=== PATIENT | female | born 1935 | race Caucasian/White ===

== ENCOUNTER 2018-03-08 14:25 | Observation (INO) | payer MEDICARE, OTHER ==
--- NOTE | 2018-03-08 15:21 | RAD ---
HISTORY: HTN, history of stroke, tachycardia COMPARISONS: September 09, 2012 VIEWS: 1: frontal portable view of the chest at 3:10 PM FINDINGS: LINES AND TUBES: None. CARDIOMEDIASTINAL SILHOUETTE: The cardiomediastinal silhouette is normal for portable technique. PLEURA: The costophrenic angles are sharp. No pleural abnormalities are noted. LUNG PARENCHYMA: The lungs are clear. ABDOMEN: The upper abdomen is clear. There is no subphrenic gas. BONES AND SOFT TISSUES: No bone or soft tissue abnormalities are noted. IMPRESSION: NO ACTIVE CARDIOPULMONARY DISEASE.
[2018-03-08 15:26] LABS: ABS Basophils 0 10^3/ul (0-0.2); ABS Eosinophils 0.2 10^3/ul (0-0.6); ABS Lymphocytes 1.8 10^3/ul (1.0-4.8); ABS Monocytes 0.5 10^3/ul (0-0.8); ABS Neutrophils 3.9 10^3/ul (1.5-7.7); ABS Nucleated RBC 0 10^3/ul; Eosinophil % 2.8 % (0-6); Hematocrit 40 % (35-47); Lymphocyte % 27.7 % (25-47); Mean Corpuscular HGB Conc 33 g/dl (31-36); Mean Corpuscular Hemoglobin 29 pg (27-31); Mean Corpuscular Volume 87 fL (80-97); Mean Platelet Volume 7.2 um3 (7.4-10.4); Nucleated Red Blood Cells % 0; Platelet Count 229 10^3/ul (150-450); Red Blood Count 4.52 10^6/ul (4.0-5.4); Red Cell Distribution Width 15 % (10.5-15); White Blood Count 6.4 10^3/ul (3.5-10.8)
[2018-03-08] MEDS ORDERED: Hydrochlorothiazide TAB* 25 MG PO ONE (15:29)
[2018-03-08] MEDS ORDERED: Lisinopril TAB* 10 MG PO ONE (15:29)
[2018-03-08 15:59] LABS: EGFR Non-African American 47.7 (>60)
[2018-03-08] MEDS ORDERED: Magnesium Oxide TAB* 400 MG PO ONE (16:04)
[2018-03-08] MEDS ORDERED: diPHENhydraMINE PO* 25 MG PO ONE ×2 (16:47→16:49)
[2018-03-08] MEDS ORDERED: hydrALAZINE IV* 20 MG/ML VIAL IV SLOW PU ONE (16:53)
[2018-03-08] MEDS ORDERED: hydrALAZINE IV* 20 MG/ML VIAL IV SLOW PU PRN ×2 (19:02→19:16)
[2018-03-08] MEDS ORDERED: Acetaminophen TAB* 325 MG PO PRN (19:15)
--- NOTE | 2018-03-08 19:42 | ED ---
Matt Ortiz Tiffany, scribed for Yung Tran MD on 03/08/18 at 1518 . Hypertension - HPI Summary HPI Summary: 82 year old F presenting to [facility] complains of episodes of hypertension since this morning. Symptoms aggravated by nothing. Symptoms alleviated by nothing. Patient reports headache, weakness. Denies chest pain, shortness of breath, fever chills, vomiting, diarrhea, bilateral lower extremity edema. Hx diabetes. Hx strokes. - History of Current Complaint Chief Complaint: EDHypertension Stated Complaint: HIGH BP, HIGH HR Time Seen by Provider: 03/08/18 14:44 Hx Obtained From: Patient Onset/Duration: Started Hours Ago - this morning Aggravating Factor(s): Nothing Alleviating Factor(s): Nothing Associated Signs & Symptoms: Negative - chest pain, shortness of breath, fever chills, vomiting, diarrhea, bilateral lower extremity edema, Other: - headache, weakness - Allergies/Home Medications Allergies/Adverse Reactions: Allergies Allergy/AdvReac Type Severity Reaction Status Date / Time alcohol Allergy Hives/Diff. Verified 03/08/18 14:40 Breathing/I tching clonidine Allergy See Comment Verified 03/08/18 14:40 thiopental [From Pentothal] AdvReac Severe Vomiting Verified 03/08/18 19:13 Home Medications: Home Medications Cholecalciferol TAB* [Vitamin D TAB*] 1,000 unit PO DAILY 03/08/18 [History Confirmed 03/08/18] Cyanocobalamin TAB* [Vitamin B12 TAB*] 1,000 mcg PO EVERY OTHER DAY 03/08/18 [ History Confirmed 03/08/18] [id number] Ethyl Esters (NF) [Lovaza (NF)] 1 cap PO DAILY 03/08/18 [History Confirmed 03/08/18] PMH/Surg Hx/FS Hx/Imm Hx Previously Healthy: No Endocrine/Hematology History: Reports: Hx Diabetes - TYPE 2 Denies: Hx Anticoagulant Therapy, Hx Systemic Lupus Erythematosus Cardiovascular History: Reports: Hx Hypertension - CONTROL WITH MEDS, Other Cardiovascular Problems/Disorders - CHOLESTEROL CONTROL WITH MEDS Denies: Hx Pacemaker/ICD GI History: Reports: Hx Ulcer - CURRENTLY - NO MEDS History: Reports: Hx Renal Disease, Other Problems/Disorders - stress incontinence, wears depends Denies: Hx Dialysis Musculoskeletal History: Reports: Hx Arthritis - RIGHT HANDS, BACK, BILATERAL HIPS, Other Musculoskeletal History - LEFT HIP SURGERY Denies: Hx Rheumatoid Arthritis Sensory History: Reports: Hx Cataracts - BILATERAL, Hx Contacts or Glasses - GLASSES Denies: Hx Hearing Aid Opthamlomology History: Reports: Hx Cataracts - BILATERAL, Hx Contacts or Glasses - GLASSES Neurological History: Reports: Hx CVA, Other Neuro Impairments/Disorders - BALANCE ISSUES R/T DIABETES - Cancer History Cancer Type, Location and Year: right breast. basal cell nose eYebrow Hx Chemotherapy: No Hx Radiation Therapy: No - Surgical History Surgery Procedure, Year, and Place: CAROTID ENDARTERECTOMY. HYSTERECTOMY. TONSILLECTOMY. SKIN LESION ON CHEST REMOVED. 2007 RIGHT BREAST NEEDLE LOCALIZATION WITH [place]CER [place] [facility] [place] [facility] [place]. [place] [facility] [place] HIP REPLACEMENT Hx Anesthesia Reactions: Yes - SODIUM PENTOTHAL - SEVERE VOMITING Infectious Disease History: No Infectious Disease History: Denies: Traveled Outside the [place] in Last 30 Days - Family History Known Family History: Positive: Other - Reviewed and non-contributory - Social History Alcohol Use: None Hx Substance Use: No Substance Use Type: Reports: None Hx Tobacco Use: No Smoking Status (MU): Never Smoked Tobacco Review of Systems Negative: Fever, Chills Positive: Other - episodes of hypertension. Negative: Chest Pain Negative: Shortness Of Breath Negative: Vomiting, Diarrhea Negative: Edema - bilateral lower extremity Positive: Headache, Weakness All Other Systems Reviewed And Are Negative: Yes Physical Exam - Summary Physical Exam Summary: VITAL SIGNS: Reviewed. GENERAL: Patient is a well-developed and nourished female who is lying comfortable in the stretcher. Patient is not in any acute respiratory distress. HEAD AND FACE: No signs of trauma. No ecchymosis, hematomas or skull depressions. No sinus tenderness. EYES: PERRLA, EOMI x 2, No injected conjunctiva, no nystagmus. EARS: Hearing grossly intact. Ear canals and tympanic membranes are within normal limits. MOUTH: Oropharynx within normal limits. NECK: Supple, trachea is midline, no adenopathy, no JVD, no carotid bruit, no c- spine tenderness, neck with full ROM. CHEST: Symmetric, no tenderness at palpation LUNGS: Clear to auscultation bilaterally. No wheezing or crackles. CVS: Regular rate and rhythm, S1 and S2 present, no murmurs or gallops appreciated. ABDOMEN: Soft, non-tender. No signs of distention. No rebound no guarding, and no masses palpated. Bowel sounds are normal. EXTREMITIES: FROM in all major joints, no edema, no cyanosis or clubbing. NEURO: Alert and oriented x 3. No acute neurological deficits. Speech is normal and follows commands. SKIN: Dry and warm Triage Information Reviewed: Yes Vital Signs On Initial Exam: Initial Vitals Temp Pulse Resp BP Pulse Ox 97 F 65 14 125/80 98 03/08/18 14:40 03/08/18 14:40 03/08/18 14:40 03/08/18 14:40 03/08/18 14:40 Vital Signs Reviewed: Yes Diagnostics - Vital Signs Vital Signs Temp Pulse Resp BP Pulse Ox 03/08/18 14:40 97 F 65 14 125/80 98 - Laboratory Lab Results: Lab Results 03/08/18 03/08/18 Range/Units 15:17 15:17 WBC 6.4 (3.5-10.8) 10^3/ul RBC 4.52 (4.0-5.4) 10^6/ul Hgb 13.0 (12.0-16.0) g/dl Hct 40 (35-47) % MCV 87 (80-97) fL MCH 29 (27-31) pg MCHC 33 (31-36) g/dl RDW 15 (10.5-15) % Plt Count 229 (150-450) 10^3/ul MPV 7.2 L (7.4-10.4) um3 Neut % (Auto) 61.4 (38-83) % Lymph % (Auto) 27.7 (25-47) % Calvert % (Auto) 7.6 H (0-7) % Eos % (Auto) 2.8 (0-6) % Baso % (Auto) 0.5 (0-2) % Absolute Neuts (auto) 3.9 (1.5-7.7) 10^3/ul Absolute Lymphs (auto) 1.8 (1.0-4.8) 10^3/ul Absolute Monos (auto) 0.5 (0-0.8) 10^3/ul Absolute Eos (auto) 0.2 (0-0.6) 10^3/ul Absolute Basos (auto) 0 (0-0.2) 10^3/ul Absolute Nucleated RBC 0 10^3/ul Nucleated RBC % 0 Sodium 139 (139-145) mmol/L Potassium 4.5 (3.5-5.0) mmol/L Chloride 106 (101-111) mmol/L Carbon Dioxide 25 (22-32) mmol/L Anion Gap 8 (2-11) mmol/L BUN 23 (6-24) mg/dL Creatinine 1.10 H (0.51-0.95) mg/dL Est GFR ( Amer) 61.3 (>60) Est GFR (Non-Af Amer) 47.7 (>60) BUN/Creatinine Ratio 20.9 H (8-20) Glucose 157 H (70-100) mg/dL Calcium 9.7 (8.6-10.3) mg/dL Magnesium 1.6 L (1.9-2.7) mg/dL Total Bilirubin 0.40 (0.2-1.0) mg/dL AST 18 (13-39) U/L ALT 21 (7-52) U/L Alkaline Phosphatase 68 (34-104) U/L Total Creatine Kinase 161 (10-223) U/L CK-MB (CK-2) 8.9 H (0.6-6.3) ng/mL Troponin I 0.01 (<0.04) ng/mL C-Reactive Protein < 1.00 (< 5.00) mg/L Total Protein 6.1 L (6.4-8.9) g/dL Albumin 3.8 (3.2-5.2) g/dL Globulin 2.3 (2-4) g/dL Albumin/Globulin Ratio 1.7 (1-3) TSH 3.11 (0.34-5.60) mcIU/mL Result Diagrams: 03/08/18 15:17 03/08/18 15:17 Lab Statement: Any lab studies that have been ordered have been reviewed, and results considered in the medical decision making process. - Radiology CXR Radiology Interpretation Completed By: Radiologist - NO ACTIVE CARDIOPULMONARY DISEASE. ED physician has reviewed this report. - EKG 14:54 Cardiac Rate: NL - 66 BPM EKG Rhythm: Sinus Rhythm EKG Interpretation: No ST elevations Hypertension Course/Dx - Course Assessment/Plan: This patient is an 82-year-old female who presents to the emergency department with a chief complaint of uncontrolled blood pressure. She also reports that she is having dizziness and weakness secondary to increased blood pressure. She has past medical history of hypertension and she reports that she takes her medications daily. Physical sounds without any significant abnormality except for creatinine of 1.1 and glucose 157. CK-MB is 8.9 troponin 0.01. Chest x-ray impression: Cardiopulmonary abnormality. EKG shows normal stimulations. And a because the patient was given lisinopril and hydrochlorothiazide since the patients blood pressure is only 181/92. We rechecked the blood pressure and 208/94 , thus the patient was given hydralazine since HR is only upper 50s. The patient continues to have increased blood pressure and dizziness. I discussed the case with Dr. Sebastian who is apparently a physician and he requested for the patient to be admitted to the hospitalist services. Therefore I discussed the case with Dr. nice and he accepted the patient for admission. The patient is hemodynamically stable alert and oriented 3 - Diagnoses Differential Diagnosis/HQI PQRI: Hypertension, Hypertensive Crisis, Hypertensive Urgency Provider Diagnoses: Hypertensive urgency Discharge - Sign-Out/Discharge Documenting (check all that apply): Discharge/Admit/Transfer - Discharge Plan Condition: Fair Disposition: ADMITTED TO [facility] Referrals: Arie Sebastian MD [Primary Care Provider] - - Billing Disposition and Condition Condition: FAIR Disposition: Admitted to [facility] The documentation as recorded by the Matt mcneal Tiffany accurately reflects the service I personally performed and the decisions made by , Yung Tran MD.
[2018-03-08] MEDS: Metoprolol Tartrate TAB* 25 MG PO SCH (20:35)
[2018-03-08] MEDS: Insulin GLARGINE(*) 1 UNITS UNIT SUBCUT SCH (20:36)
[2018-03-08] MEDS: Heparin VIAL(*) 5000 UNITS/ML VIAL (FIVE THOUSAND) SUBCUT SCH (20:37)
[2018-03-08] MEDS ORDERED: Aspirin EC TAB* 81 MG TAB.EC PO SCH (21:00)
[2018-03-09] MEDS: Nystatin TOP POWDER* 15 GM BTL TOPICAL SCH ×2 (00:18→09:37)
--- NOTE | 2018-03-09 04:09 | HP ---
CC: Dr. Arie Sebastian * HISTORY AND PHYSICAL: DATE OF ADMISSION: 03/08/18 PRIMARY CARE PROVIDER: Dr. Arie Sebastian. ATTENDING PHYSICIAN: Dr. Isak Weeks *(dictated by Maxine Carpenter NP). CHIEF COMPLAINT: Headache, generalized weakness and hypertension. HISTORY OF PRESENT ILLNESS: Ms. Lackey is an 82-year-old female with past medical history significant for diabetes mellitus, hypertension, hyperlipidemia , GERD, arthritis, right breast cancer, uterine cancer, basal cell cancer and stress incontinence, who states that she has been in her usual state of health. She denies any fevers, chills, chest pain, shortness of breath. She occasionally has a nonproductive cough. She denies nausea, vomiting, or abdominal pain. She reports diarrhea at baseline and believes this is secondary to her metformin. She reports a right temporal headache for the last week and today. She also reports dizziness, feeling as though the room was spinning for the last week. She often notices this at night when she gets up. She also reports left eye twitching for the last 4 to 5 days. She has urinary frequency at baseline. She denies other urinary symptoms such as urgency or dysuria. She denies any changes in her vision. She denies any one-sided weakness, facial drooping, difficulty with speech. She reports drinking 2 cups of coffee in the morning and occasionally a cup of tea in the evening. She reports that she checked her blood pressure at home today and it was 235/88 with a pulse of 75, so she went to the drug store and rechecked it and her systolic blood pressure was 210. She called Dr. Sebastian's office and eventually decided to come to the emergency room for further evaluation of her symptoms. While in the emergency room, the patient was noted to be hypertensive with systolic blood pressures up into the 200s. She received lisinopril, hydroxyzine , hydrochlorothiazide. While in the emergency room, she had labs that were unremarkable with the exception of hypomagnesium with a magnesium of 1.6, she received oral supplement. She has an elevated creatinine, which appears to be at her baseline, chronic kidney disease stage 3. While in the emergency room, her blood pressure was down to 183/66. Due to her hypertension and complaints of dizziness, the hospitalists were asked to evaluate her for admission. PAST MEDICAL HISTORY: 1. Diabetes mellitus. 2. Hypertension. 3. Hyperlipidemia. 4. GERD. 5. Uterine carcinoma. 6. Stress urinary incontinence. 7. Arthritis. 8. Right breast cancer. 9. Basal cell carcinoma. PAST SURGICAL HISTORY: 1. Status post right breast lumpectomy and sentinel node biopsy. 2. Status post left hip ORIF. 3. Status post release of right trigger thumb. 4. Status post right carpal tunnel release. 5. Status post excision of skin lesion to the chest. 6. Status post tonsillectomy. 7. Status post bilateral cataract extractions. 8. Status post excision of basal cell carcinoma to the nose and eyebrow. 9. Status post left carotid endarterectomy. 10. Status post hysterectomy. HOME MEDICATIONS: Include: 1. Aspirin 81 mg oral daily at bedtime. 2. Lantus 22 units subcutaneous twice daily. 3. Metformin 1000 units twice daily. 4. Ranitidine 150 mg oral twice daily. 5. Lovaza 1 oral daily. 6. Metoprolol 25 mg oral twice daily. 7. Lisinopril 40 mg oral daily. 8. Humalog 14 units subcutaneous with meals. 9. Vitamin B12 1000 mcg oral every other day. 10. Vitamin D 1000 units oral daily. 11. Atorvastatin 40 mg oral daily. ALLERGIES: ALCOHOL, CLONIDINE, SODIUM PENTOTHAL. FAMILY HISTORY: The patient's father and son have a history of coronary artery disease. She has a sister with a history of diabetes mellitus and a maternal grandfather with a history of rectal carcinoma. SOCIAL HISTORY: The patient denies tobacco, alcohol or recreational drug use. Her daughter, Peyton Flannery, will be her surrogate decision maker in the event she is unable to make decisions for herself. REVIEW OF SYSTEMS: I performed an 11-point review of systems. All the pertinent positives and negatives are mentioned in the history of present illness. Remaining review of systems is negative. PHYSICAL EXAMINATION GENERAL APPEARANCE: The patient is alert, pleasant, appears to be in no acute distress. VITAL SIGNS: Temperature 97, heart rate 66, respiratory rate 21, O2 sat 95% on room air, blood pressure 206/77. HEENT: Normocephalic, atraumatic. Pupils are equal and reactive to light. Extraocular movements are intact. RESPIRATORY: There is no accessory muscle use. The lungs are clear to auscultation bilateral. CARDIOVASCULAR: Regular rate and rhythm. S1, S2 present. There are no murmurs , rubs or gallops heard. ABDOMEN: Soft, nontender, nondistended. There are bowel sounds present x4. EXTREMITIES: There is no lower extremity edema. DP and PT pulses are 2+ and symmetric. MUSCULOSKELETAL: There is no clubbing or cyanosis noted. The patient exhibits good strength in all extremities. NEUROLOGICAL: The patient is alert and oriented x4. Cranial nerves II through XII are grossly intact. She has no nystagmus. Her smile is symmetric. Her tongue is midline. Her handgrips are equal. She has no pronator drift. She is able to perform [id number] bilateral without difficulty. PSYCHOLOGIC: The patient is calm and cooperative. SKIN: There are no rashes or abnormalities seen. DIAGNOSTIC STUDIES/LABORATORY DATA: Sodium 139, potassium 4.5, chloride 106, CO2 of 25, BUN 23, creatinine 1.10, glucose 157, magnesium 1.6. White blood cell count 6.4, hemoglobin 13.0, hematocrit 40, platelet count 229. EKG shows sinus rhythm, rate of 66. There are no acute signs of ischemia and it is similar when compared to previous from 11/10/11. Chest x-ray from today. Radiologist's impression: No active cardiopulmonary disease. IMPRESSION: Mrs. Lackey is an 82-year-old female with past medical history significant for diabetes mellitus, hypertension, hyperlipidemia, gastroesophageal reflux disease, uterine carcinoma, stress urinary incontinence , arthritis, right breast cancer and basal cell cancer, who presents to the emergency room with complaints of hypertension, headache and generalized weakness. She will be admitted as an observation for hypertension. ASSESSMENT/PLAN: 1. Hypertension. The patient's blood pressures are improving in the emergency room after receiving additional medications. She was down into the 180's systolically after receiving hydrochlorothiazide, hydralazine and lisinopril in the emergency room. We will give her as needed hydralazine for systolic blood pressures greater than 185 or diastolic blood pressure greater than 100. We will continue her home metoprolol and lisinopril. She may need to further have her medications adjusted if she continues to be hypertensive overnight. I suspect the patient's hypertension is causing her dizziness and headache. 2. Headache. I suspect this is secondary to the patient's hypertension. She will be provided supportive care and pain medication. 3. Diabetes mellitus. The patient will have glucose checked a.c. and h.s. She will be continued on her home metformin, Lantus and Humalog with meals. 4. Chronic kidney disease, stage 3. The patient's creatinine is at baseline. 5. Gastroesophageal reflux disease. Continue home ranitidine or hospital substitute. 6. Fluids, electrolytes and nutrition. Heart- healthy, consistent carbohydrate diet. 7. Code status. Full code. 8. DVT prophylaxis. The patient is at high risk and will be on subcu heparin. 9. Disposition. Observation. TIME SPENT: Time for this admission was approximately 60 minutes, greater than half of that was spent with the patient discussing medications, past medical history, the events leading up to her arrival today and performing her physical examination. The case has been reviewed with the attending, Dr. Weeks, who agrees with the plan of care. Reviewed by ESMER JONES 03/11/18 0922 [id number]/[facility] #: [id number] REHANA
[2018-03-09] MEDS: Heparin VIAL(*) 5000 UNITS/ML VIAL (FIVE THOUSAND) SUBCUT SCH (06:06)
[2018-03-09 06:52] LABS: EGFR Non-African American 41.9 (>60)
[2018-03-09] MEDS ORDERED: metFORMIN* 500 MG TAB PO SCH (08:00)
[2018-03-09] MEDS ORDERED: Hydrochlorothiazide TAB* 25 MG PO SCH (09:00)
[2018-03-09] MEDS ORDERED: Famotidine TAB* 20 MG PO SCH (09:00)
[2018-03-09] MEDS ORDERED: Cholecalciferol TAB* 1000 UNITS PO SCH (09:00)
[2018-03-09] MEDS ORDERED: Lisinopril TAB* 10 MG PO SCH (09:00)
[2018-03-09] MEDS ORDERED: amLODIPine TAB* 5 MG PO SCH (09:00)
[2018-03-09] MEDS ORDERED: Atorvastatin* 40 MG TAB PO SCH (09:00)
[2018-03-09] MEDS: Metoprolol Tartrate TAB* 25 MG PO SCH (09:33)
[2018-03-09] MEDS: Insulin GLARGINE(*) 1 UNITS UNIT SUBCUT SCH (09:36)
[2018-03-09] MEDS: Insulin LISPRO* 1 UNITS UNIT SUBCUT SCH ×2 (09:36→13:00)
--- NOTE | 2018-03-09 10:45 | PN ---
Subjective - Subjective Reason for Note: Discharge Note History: Discharge summary I have reviewed Renetta Lackey's presentation with the patient and from Dr. Sim Fonseca's admitting history and physical. She has had reasonable control of her hypertension as an out patient/primary care patient at my office. She was taking lisinopril and metoprolol. Her brother at 92 years on and she is going to have to give an oration at his . She is not aware of being stressed. She has had a headache for 1 week - this is unusual for her. She has had some vertigo - but this is likely BPPV. Her BP was high at the pharmacy on 2 days and she went to the ED. It has come down overnight. She has no nausea, vomiting, headache, chest pain, dyspnea, palpitations. She feels well and would like to go home Active Problems: Active Problems Accelerated essential hypertension (Acute) I10 Bereavement (Acute) Z63.4 HYPERTENSION (Acute) Abdominal aortic aneurysm without rupture (Chronic) I71.4 Arthritis (Chronic) M19.90 BREAST CANCER (Chronic) CVA (Chronic) Diabetes mellitus (Chronic) E11.9 Hypercholesterolemia (Chronic) E78.0 Thyroid nodule (Chronic) E04.1 Current Medications: Current Medications Acetaminophen (Tylenol Tab*) 650 mg PO Q4H PRN PRN Reason: FEVER/PAIN Aspirin (Aspirin Ec Tab*) 81 mg PO BEDTIME [facility] Last Admin: 03/08/18 20:36 Dose: 81 mg Atorvastatin Calcium (Lipitor*) 40 mg PO DAILY KENDRICK Last Admin: 03/09/18 09:32 Dose: 40 mg Cholecalciferol (Vitamin D Tab*) 1,000 units PO DAILY KENDRICK Last Admin: 03/09/18 09:33 Dose: 1,000 units Cyanocobalamin (Vitamin B12 Tab*) 1,000 mcg PO EVERY OTHER DAY [facility] Famotidine (Pepcid Tab*) 20 mg PO DAILY KENDRICK PRN Reason: Protocol Last Admin: 03/09/18 09:32 Dose: 20 mg Heparin Sodium (Porcine) (Heparin Vial(*)) 5,000 units SUBCUT Q8HR KENDRICK Last Admin: 03/09/18 06:06 Dose: 5,000 units Hydralazine HCl (Apresoline Iv*) 10 mg IV SLOW PU Q6H PRN PRN Reason: BLOOD PRESSURE Insulin Glargine (Lantus(*)) 22 units SUBCUT BID [facility] Last Admin: 03/09/18 09:36 Dose: 22 unit Insulin Human Lispro (Humalog*) 14 units SUBCUT AC [facility] Last Admin: 03/09/18 09:36 Dose: 14 units Lisinopril (Prinivil Tab*) 40 mg PO DAILY [facility] Last Admin: 03/09/18 09:33 Dose: 40 mg Metformin HCl (Glucophage*) 1,000 mg PO BID WITH MEALS [facility] Last Admin: 03/09/18 09:33 Dose: 1,000 mg Metoprolol Tartrate (Lopressor Tab*) 25 mg PO BID [facility] Last Admin: 03/09/18 09:33 Dose: 25 mg Nystatin (Nystatin Top Powder*) 1 applic TOPICAL BID [facility] Last Admin: 03/09/18 09:37 Dose: 1 applic - Review of Systems Constitutional Symptoms: Yes: Weakness, No: Fatigue Eyes: Negative: Change in Vision, Double Vision Pulmonary: Negative: Cough, Sputum, Hemoptysis Cardiology: Negative: Chest Pain, Shortness of Breath, Palpitations, Swelling of Ankles Gastroenterology: Negative: Abdominal Pain, Nausea, Vomiting, Heartburn, Change in Bowel Habits Genital - Urinary: Positive: Normal Genitourinay - Female: Abnormal: Vaginal Discharge - she has vaginal itching Neurology: Positive: Headache, Dizziness Negative: Change in Vision, Diplopia, Change in Speech, Change in Sphincter Function, Numbness\Paresthesiae Home Medications: Home Medications Medication Instructions Recorded Confirmed Type Aspirin EC TAB* [Ecotrin EC Low 81 mg PO BEDTIME 10/21/12 03/08/18 History Dose 81 MG*] Atorvastatin* [Lipitor*] 40 mg PO DAILY 10/21/12 03/08/18 History Insulin Human LISPRO(*) 14 units SUBCUT AC MDD 60u 10/21/12 03/08/18 History [Humalog(*)] Lisinopril TAB* [Prinivil TAB 10 40 mg PO DAILY 10/21/12 03/08/18 History MG*] Metoprolol Tartrate TAB* 25 mg PO BID 10/21/12 03/08/18 History [Lopressor TAB*] Ranitidine TAB (NF) [Zantac TAB 150 mg PO BID 10/21/12 03/08/18 History (NF)] metFORMIN* [Glucophage 500 MG TAB 1,000 mg PO BID WITH MEALS 10/21/12 03/08/18 History *] zzInsulin GLARGINE(*) [Lantus(*)] 22 units SUBCUT BID 10/21/12 03/08/18 History Cholecalciferol TAB* [Vitamin D 1,000 unit PO DAILY 03/08/18 03/08/18 History TAB*] Cyanocobalamin TAB* [Vitamin B12 1,000 mcg PO EVERY OTHER DAY 03/08/18 03/08/18 History TAB*] Mljuu-4-Xkor Ethyl Esters (NF) 1 cap PO DAILY 03/08/18 03/08/18 History [Lovaza (NF)] Allergies: Allergies Allergy/AdvReac Type Severity Reaction Status Date / Time alcohol Allergy Hives/Diff. Verified 03/08/18 14:40 Breathing/I tching clonidine Allergy See Comment Verified 03/08/18 14:40 thiopental [From Pentothal] AdvReac Severe Vomiting Verified 03/08/18 19:13 Objective - Vital Signs Vital Signs: Vital Signs 03/08/18 03/08/18 03/08/18 18:53 19:00 19:03 Temperature Pulse Rate 82 78 80 Respiratory 16 17 31 Rate Blood Pressure 196/83 190/88 (mmHg) O2 Sat by Pulse 96 97 97 Oximetry 03/08/18 03/08/18 03/08/18 19:13 19:33 19:37 Temperature Pulse Rate 79 84 80 Respiratory 23 23 17 Rate Blood Pressure 195/90 202/72 189/69 (mmHg) O2 Sat by Pulse 95 96 96 Oximetry 03/08/18 03/08/18 03/08/18 19:46 19:56 20:00 Temperature 98.3 F 98.1 F Pulse Rate 87 88 Respiratory 20 20 20 Rate Blood Pressure 199/105 188/56 (mmHg) O2 Sat by Pulse 97 98 Oximetry 03/08/18 03/08/18 03/08/18 21:53 22:06 22:07 Temperature Pulse Rate 71 71 74 Respiratory Rate Blood Pressure 132/43 132/43 150/48 (mmHg) O2 Sat by Pulse 94 Oximetry 03/08/18 03/09/18 03/09/18 22:08 00:25 04:07 Temperature 98.0 F 97.6 F Pulse Rate 78 73 76 Respiratory 24 20 Rate Blood Pressure 154/60 153/61 180/68 (mmHg) O2 Sat by Pulse 96 98 Oximetry 03/09/18 03/09/18 04:19 07:25 Temperature 97.9 F 97.5 F Pulse Rate 75 71 Respiratory 20 16 Rate Blood Pressure 150/62 177/63 (mmHg) O2 Sat by Pulse 97 97 Oximetry - Intake and Output Intake and Output: Intake & Output 03/06/18 03/07/18 03/08/18 03/09/18 11:59 11:59 11:59 11:59 Intake Total 485 Output Total 0 Balance 485 Weight 206 lb 11.2 oz Intake: Oral 485 Output: Urine 0 Other: Estimated Void Medium # Bowel Movements 0 # Voids 1 ADLs: Meal Record Start: 03/08/18 19: 56 Freq: DAILY@0900,1400,1800 Status: Active Protocol: Created 03/08/18 19:56 System (Rec: 03/08/18 19:56 System [email or web address]) Document 03/09/18 09:00 [id number] (Rec: 03/09/18 10:19 [id number] [id number]) Intake and Output Start: 03/08/18 19: 56 Freq: DAILY@0600,1400,2200 Status: Active Protocol: Created 03/08/18 19:56 System (Rec: 03/08/18 19:56 System [email or web address]) Document 03/08/18 22:00 [id number] (Rec: 03/08/18 22:09 [id number] [email or web address]) Document 03/09/18 06:00 [id number] (Rec: 03/09/18 07:32 [id number] [email or web address]) - Physical Exam General Physical Exam Comment: Warm and well perfused, alert and oriented. She is in no distress. Fundoscopy - no papilledema or hemorrhages. General: No Cyanosis, No Anemia, No Jaundice, No Clubbing Eye Exam: bilateral: PERRLA, Normal Fundi Skin: Normal: Rash Endocrine: Yes Central Obesity, No Hirsuitism, No Virilism, No Acromegaly, No Vitiligo, No Flushing, No Acanthosis nigricans, No Violaceious striae, No [place] Syndrome, No Buccal pigmenatation, No Sosa Crease Pigmentation Lungs and Chest: Yes: Chest Expansion Full, Chest Expansion Symetrica, Percussion Note Resonant, Vessicular Breath Sounds. No: Crackles, Wheezes Heart Rate and Rhythm: Regular JVP: Not Elevated Additional Cardiovascular: Yes: Normal Heart Sounds. No: Heart Murmur, Pedal Edema Abdominal Exam: Yes: Soft, Bowel Sounds Present. No: Distention, Abdominal Tenderness - Extremities Cranial Nerves II-XII Intact: Yes Limbs: Normal Power, Normal Tone, Normal Coordination - Neuro Orientation: A/O x3 Speech: Normal Results - Results Lab Results: Laboratory Results - last 24 hr 03/08/18 03/09/18 03/09/18 20:23 06:19 08:16 Sodium 139 Potassium 4.5 Chloride 105 Carbon Dioxide 26 Anion Gap 8 BUN 26 H Creatinine 1.23 H Est GFR ( Amer) 53.9 Est GFR (Non-Af Amer) 41.9 BUN/Creatinine Ratio 21.1 H Glucose 217 H POC Glucose (mg/dL) 150 H 203 H Calcium 9.5 Magnesium 1.7 L Radiology Results: Patient Name: RENETTA LACKEY Medical Record#: [id number] Ordering Physician: Yung Tran MD Acct.#: [id number] : 1935 Age: 82 Sex: F Location: EMERGENCY DEPARTMENT Exam Date: 03/08/181446 ADM Status: REG ER Order Information: CHEST AP PORTABLE Accession Number: [id number] CPT: 78586 HISTORY: HTN, history of stroke, tachycardia COMPARISONS: September 09, 2012 VIEWS: 1: frontal portable view of the chest at 3:10 PM FINDINGS: LINES AND TUBES: None. CARDIOMEDIASTINAL SILHOUETTE: The cardiomediastinal silhouette is normal for portable technique. PLEURA: The costophrenic angles are sharp. No pleural abnormalities are noted. LUNG PARENCHYMA: The lungs are clear. ABDOMEN: The upper abdomen is clear. There is no subphrenic gas. BONES AND SOFT TISSUES: No bone or soft tissue abnormalities are noted. IMPRESSION: NO ACTIVE CARDIOPULMONARY DISEASE. <Electronically signed by Scar Riley MD in OV> 03/08/181517 Dictated By: Scar Riley MD Dictated Date/Time: 03/08/181517 Transcribed Date/Time: 03/08/181516 Copy to: CC:Arie Sebastian MD; Yung Tran MD Imaging - [facility] Imaging - [facility] Imaging - [facility] [address] [place], [place] [id number] [place] [id number] [place] [id number] ph ([phone]) ph ([phone]) ph ([phone]) EKG Report: 66 sinus rhythm MO 151 QRDS 90 QT^c 413 [place] -16 normal sinus rhythm Assessment - Problem List Assessment: Patient Problems Accelerated essential hypertension (Acute) Bereavement (Acute) HYPERTENSION (Acute) Abdominal aortic aneurysm without rupture (Chronic) Arthritis (Chronic) BREAST CANCER (Chronic) CVA (Chronic) Diabetes mellitus (Chronic) Hypercholesterolemia (Chronic) Thyroid nodule (Chronic) Plan: Accelerated essential hypertension (Acute) HYPERTENSION (Acute) She has a history of controlled essential hypertension. Her brother on . She has had a headache for 1 week (atypical) and her BP was high x 2 at a pharmacy. Her BP has come down in the hospital - it remains high, but not critical. She doesn't have any neurological signs, nor does she have any evidence of papilledema. I will treat this as on outpatient and start her on amlodipine 5 mg and hydrochlorothiazide 12.5 mg qdaily in addition to metoprolol and lisinopril. Abdominal aortic aneurysm without rupture (Chronic) no symptoms Arthritis (Chronic) ongoing BREAST CANCER (Chronic) history CVA (Chronic) history Diabetes mellitus (Chronic) well controlled T2D Hypercholesterolemia (Chronic) controlled Thyroid nodule (Chronic) inactive I discussed the above with the patient. I offered her treatment in the hospital - however, I think she will do better at home. She has a scheduled appt with me in 3 days as an outpatient
[2018-03-09 11:41] VITALS: BP 232/77
[2018-03-10] MEDS ORDERED: Cyanocobalamin TAB* 500 MCG PO SCH (09:00)
== END 2018-03-09 13:25 | disposition home or self-care (01) ==
LOC: ED 14:25 → MEDTELE 18:46
PROVIDERS: ADMIT Internal Medicine; ATTEND Internal Medicine
DX: R51 Headache (principal); R53.1 Weakness; I10 Essential (primary) hypertension; Z63.4 Disappearance and death of family member; I71.4 Abdominal aortic aneurysm, without rupture; M19.90 Unspecified osteoarthritis, unspecified site; C50.919 Malignant neoplasm of unspecified site of unspecified female breast; I63.9 Cerebral infarction, unspecified; E11.9 Type 2 diabetes mellitus without complications; E78.00 Pure hypercholesterolemia, unspecified; E04.1 Nontoxic single thyroid nodule; K21.9 Gastro-esophageal reflux disease without esophagitis; E78.5 Hyperlipidemia, unspecified; Z85.42 Personal history of malignant neoplasm of other parts of uterus
CPT/HCPCS: 36415; 71045; 80048; 80053; 82550; 82553; 83735; 84443; 84484; 85025; 86140; 93005; 96374; 99285; A9270-GY; G0378; J0360; J1644

== ENCOUNTER 2018-04-18 07:03 | Day surgery (SDC) | payer MEDICARE, OTHER ==
--- NOTE | 2018-03-27 15:31 | HP ---
CC: Dr. Sebastian * PREOPERATIVE HISTORY AND PHYSICAL: DATE OF ADMISSION/SURGERY: 04/18/18 This patient is scheduled for same-day surgery admission by Dr. Costa, on , 04/18/18. DATE OF PREOPERATIVE HISTORY AND PHYSICAL EXAMINATION: 03/26/18. ATTENDING SURGEON: Dr. Jamie Costa * (dictated by Karlene Li NP). CHIEF COMPLAINT: Right breast cancer. HISTORY OF PRESENT ILLNESS: The patient is an 82-year-old female referred to Dr. Costa from Dr. Sebastian for evaluation of right breast cancer. By history, she had right breast cancer treated about 10 years ago with lumpectomy and axillary sentinel node biopsy. She was treated with hormonal therapy and did not receive chemotherapy or radiation therapy. She was node negative. More recently, a screening mammogram identified a suspicious lesion in the upper outer quadrant of the right breast and this was also seen on ultrasound. 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 She denies any breast symptoms and has not noticed a lump or mass or nipple discharge or bleeding. She does have a family history of breast cancer with a sister diagnosed at age 60[address] Costa has reviewed the findings with the patient and has recommended needle localization excision of the right breast cancer. Dr. Costa described the nature of the surgical procedure, the rationale for the procedure, and today, I reviewed the expected postoperative care and recovery. The patient has had a chance to ask questions and stated that she understands the information and is satisfied with the answers given to her questions. She will sign surgical consent on the day of surgery. PAST MEDICAL HISTORY: Significant for hypertension; diabetes mellitus; stroke with short-term memory loss; uterine cancer, status post hysterectomy; right breast cancer, status post lumpectomy and axillary sentinel lymph node biopsy about 10 years ago; chronic kidney disease, stage 3; thyroid nodules, followed by Dr. Tomlin and she has an appointment with him, 03/29/18. PAST SURGICAL HISTORY: Right lumpectomy and sentinel lymph node biopsy about 10 years ago; ORIF, left hip; release of right trigger thumb; right carpal tunnel release; bilateral cataract extractions; hysterectomy; left carotid endarterectomy; tonsillectomy; excision of basal cell carcinoma on her face and chest. MEDICATIONS: 1. Amlodipine 10 mg p.o. daily. 2. Atorvastatin 40 mg p.o. daily. 3. Lantus SoloSTAR 100 units/mL, 20 units twice daily. 4. Lisinopril 40 mg p.o. daily. 5. Metformin 500 mg 2 tablets b.i.d. and she will hold the metformin on the evening before surgery and the morning of surgery. 6. Metoprolol 25 mg p.o. b.i.d. 7. Hydrochlorothiazide 25 mg p.o. daily. 8. Aspirin 81 mg p.o. daily and she will hold that for 5 days preoperatively. 9. Ranitidine 150 mg p.o. b.i.d. 10. Magna-3 one tablet p.o. daily. 11. Cyanocobalamin 1000 mcg sublingually b.i.d. 12. Vitamin D3 1000 International Units daily. ALLERGIES: ALCOHOL causes hives; CLONIDINE, bradycardia; SODIUM PENTOTHAL, vomiting. FAMILY HISTORY: Sister diagnosed with breast cancer at age 60. No known family history of ovarian cancer. No known anesthesia complications, bleeding tendencies, or clotting disorders. Mother with history of kidney disease. Father from myocardial infarction. SOCIAL HISTORY: She is ; her children live nearby and are very supportive. She is a nonsmoker and denies the use of alcohol. REVIEW OF SYSTEMS: Constitutional: No fevers, chills, excessive fatigue, or weight loss. Endocrine: She is a type 2 diabetic, followed by Dr. Sebastian. She checks her fingerstick blood sugars twice daily and this morning it was 100. She has a history of benign thyroid nodules and has followup with Dr. Tomlin, , because she reports a visible mass in the region of the thyroid and when she bends over, it causes her to be short of breath. Hematologic: No easy bruising or bleeding. No blood transfusions. Breasts: Abnormal right breast as described in history of present illness. Respiratory: No dyspnea on exertion. No chronic cough. Cardiovascular: She has hypertension and had a recent hospitalization, 03/08/18, at [facility] when she came to the emergency room with a right temporal headache that had lasted for 1 week, she took her blood pressure at home, which was over 200 systolic and she came to the emergency room for treatment. She was treated with hydrochlorothiazide, hydralazine, and lisinopril with improvement of her blood pressure. She had an overnight stay and was discharged home with the additional med of hydrochlorothiazide. Her EKG, on that visit, was normal sinus rhythm with possible left ventricular hypertrophy. Her chest x-ray did not reveal any active cardiopulmonary disease. Her magnesium level was slightly low at 1.6 and her creatinine was slightly elevated at 1.1, which is her baseline due to chronic stage 3 kidney disease; she denies any chest pain or palpitations or history of myocardial infarction. Gastrointestinal: No nausea, vomiting, diarrhea, GI bleeding, or constipation. Genitourinary: No dysuria. She states that she is scheduled to have testing for her chronic kidney disease on 04/11/18. Musculoskeletal: Status post left hip ORIF. Mild joint discomfort. Neurologic: No headache or blurred vision. No areas of focal weakness or numbness. She had TIA or mild stroke many years ago with full recovery other than mild short-term memory loss; she continues to be active and drives. General: No previous anesthesia complications. No history of deep vein thrombosis or pulmonary embolism. PHYSICAL EXAMINATION GENERAL SURVEY: The patient is an 82-year-old obese female, well-developed, and in no acute distress. VITAL SIGNS: Height 64 inches, weight 200 pounds, body mass index 34.3. HEENT: Benign. NECK: Supple, visible and palpable mass in the region of the right thyroid, nontender. No cervical lymphadenopathy. Well-healed scar on the left neck status post carotid endarterectomy. No carotid bruits. No supraclavicular lymphadenopathy. BREASTS: There is a scar in the upper inner quadrant of the right breast, which is well healed. There is a vague thickening in the upper outer quadrant, but no discrete mass. There are no left breast masses. There is no nipple discharge bilaterally. There is no axillary adenopathy bilaterally. LUNGS: Breath sounds bilaterally clear and equal. HEART: Regular rate and rhythm. No murmurs or rubs appreciated. ABDOMEN: Obese, active bowel sounds, soft, nondistended, nontender throughout. No obvious masses, organomegaly, or evidence of umbilical hernia. EXTREMITIES: Moves all 4 extremities well. No edema or skin ulcerations. BACK: No spine or CVA tenderness. PELVIC EXAM: Deferred. RECTAL EXAM: Deferred. NEUROLOGIC: Alert and oriented x3, steady gait. SKIN: Warm, dry, intact. IMPRESSION: Right breast cancer. PLAN: Same-day surgery admission to Dr. Costa's service on , 04/18/18 , for needle localization excision of right breast cancer. TRINIDAD LI, ROUTE SALES SPECIALIST [id number]/[facility] #: [id number] HOSPITALPerez
[~2018-04-18 07:03] MED LIST: Buffered Lidocaine 0.9% SYRIN* 5 ML/SYR SYRINGE INTRADERM ONE
[2018-04-18] MEDS ORDERED: Lidocaine 2.5%/Prilocain 2.5%* 5 GM TUBE ONE (07:11)
[2018-04-18] MEDS ORDERED: Bupivacaine 0.25% W/EPI* 10 ML SDV ONE (08:47)
[2018-04-18] MEDS ORDERED: Lidocaine 1% INJ* 10 MG/ML 30 ML SDV ONE (08:47)
[2018-04-18] MEDS ORDERED: ceFAZolin 2 GM PREMIX (*) 2 GM/50 ML BAG IVPB ONE (09:24)
[2018-04-18] MEDS ORDERED: Midazolam* 1 MG/ML 5 ML VIAL (5 MG) ONE (09:34)
[2018-04-18] MEDS ORDERED: fentaNYL* 50 MCG/ML 2 ML VIAL (100 MCG VIAL) ONE (09:57)
[2018-04-18] MEDS ORDERED: Ondansetron INJ* 2 MG/ML VIAL IV PRN (10:20)
[2018-04-18] MEDS ORDERED: HYDROcodone/ACETAMIN 5-325 MG* 1 TAB PO PRN (10:20)
[2018-04-18] MEDS ORDERED: oxyCODONE/Acetamin 5/325 MG* TAB PO PRN (10:20)
[2018-04-18] MEDS ORDERED: fentaNYL* 50 MCG/ML 2 ML VIAL (100 MCG VIAL) IV PRN (10:20)
[2018-04-18] MEDS ORDERED: Naloxone* 0.4 MG/ML 1 ML VIAL IV PRN (10:20)
--- NOTE | 2018-04-18 10:49 | RAD ---
INDICATION: Right breast carcinoma COMPARISON: Mammogram March 21, 2018 TECHNIQUE/FINDINGS: Informed consent was obtained. A routine timeout was utilized. From a lateral approach the nodule and microclip in the mid lateral right breast was localized without difficulty with a 7.5 cm Álvarez wire. Post procedure images demonstrated placement of the wire immediately adjacent to the clip. The patient tolerated the procedure well. There are no complications. A specimen radiograph obtained postprocedure demonstrated excision of the nodule and microclip. The wire was intact IMPRESSION: SUCCESSFUL WIRE NEEDLE LOCALIZATION WITH SUBSEQUENT EXCISION OF THE RIGHT BREAST CLIP AND NODULE.
[2018-04-18 11:18] VITALS: BP 130/81
--- NOTE | 2018-04-18 17:01 | OP ---
CC: Dr. Sebastian; Dr. Hudson * DATE OF OPERATION: 04/18/18 - [facility] DATE OF : 37 SURGEON: Jamie Costa MD FIRE HAZARD INSPECTOR: None. ANESTHESIOLOGIST: Amol Oliver MD ANESTHESIA: LMAC anesthesia. PRE-OP DIAGNOSIS: Right breast cancer. POST-OP DIAGNOSIS: Right breast cancer. OPERATIVE PROCEDURE: Needle-localizing wide local excision of right breast cancer. DESCRIPTION OF PROCEDURE: The patient was supine on the operating room table. After adequate intravenous sedation, compression stockings, Jeremiah Hugger warmer, and intravenous antibiotics, the right breast was prepped with antiseptic and draped in a sterile fashion. Elliptical incision of approximately 1 x 4 cm was carried out at the region of the guidewire. Dissection was carried down until a piece of breast tissue of approximately 4 x 4 x 5 cm was removed and it was marked with usual marking sutures, short, medium, and long, and sent fresh to Radiology, which confirmed excision of lesion. The guidewire did seem close to the deep medial area and an additional piece of tissue was taken from that area and marked with a suture for the true margin. Hemostasis was obtained using cautery and sutures and then the incision was closed with 3-0 and 5-0 Vicryl followed by Steri-Strips. She tolerated the procedure well, was awakened, brought to Recovery in good condition. No complications. No drains. Pathologic specimen was right breast excision and additional deep medial tissue. Sponge and instrument counts correct. Estimated blood loss was 20 mL. [id number]/[facility] #: [id number] MTDD
== END 2018-04-18 11:08 | disposition home or self-care (01) ==
LOC: SDS 07:03
PROVIDERS: ATTEND Surgery
DX: C50.411 Malignant neoplasm of upper-outer quadrant of right female breast (principal); E11.9 Type 2 diabetes mellitus without complications; Z79.84 Long term (current) use of oral hypoglycemic drugs; Z79.4 Long term (current) use of insulin; I69.311 Memory deficit following cerebral infarction; Z85.3 Personal history of malignant neoplasm of breast; I12.9 Hypertensive chronic kidney disease with stage 1 through stage 4 chronic kidney disease, or unspecified chronic kidney disease; N18.3 Chronic kidney disease, stage 3 (moderate); Z85.42 Personal history of malignant neoplasm of other parts of uterus; Z85.828 Personal history of other malignant neoplasm of skin; E04.1 Nontoxic single thyroid nodule
CPT/HCPCS: 88307; A9270-GY; J0690; J2250; J3010

== ENCOUNTER 2018-07-02 05:54 | Inpatient (IN) | payer MEDICARE, OTHER ==
--- NOTE | 2018-06-24 20:55 | HP ---
HISTORY AND PHYSICAL: DATE OF ADMISSION/SURGERY: 07/02/18 DATE OF OFFICE VISIT: 06/19/18 PRIMARY CARE PHYSICIAN: Arie Sebastian MD SURGEON: Aida Ervin MD * (DICTATED BY MADONNA WILKERSON) PROCEDURE: Right total hip arthroplasty. CHIEF COMPLAINT: Right hip pain. HISTORY OF PRESENT ILLNESS: Ms. Lackey is an 82-year-old female with complaints of right hip pain. She has failed conservative treatment and elected to proceed with a right total hip arthroplasty. PAST MEDICAL HISTORY: 1. Diabetes. 2. Hypertension. 3. High cholesterol. 4. Vitamin D deficiency. 5. Stage 2 kidney disease. 6. History of a stroke. 7. History of breast cancer. PAST SURGICAL HISTORY: 1. Carotid endarterectomy. 2. Hysterectomy. 3. Left total hip arthroplasty. 4. Tonsillectomy. CURRENT MEDICATIONS: 1. Amlodipine 10 mg daily. 2. Atorvastatin calcium 40 mg daily. 3. Vitamin D3. 4. Humalog. 5. Lantus. 6. Lisinopril 40 mg daily. 7. Metformin 500 mg 2 tabs twice a day. 8. Metoprolol 25 mg twice a day. 9. Aspirin 81 mg daily. 10. Cyanocobalamin. 11. [place]-3. 12. Ranitidine. 13. Hydrochlorothiazide 25 mg daily. ALLERGIES: To ALCOHOL, CLONIDINE, and SODIUM PENTOTHAL. FAMILY HISTORY: Coronary artery disease and chronic kidney disease. SOCIAL HISTORY: She is an 82-year-old female. Lives with her . She does not smoke, use drugs or alcohol. REVIEW OF SYSTEMS: A complete 14-point review of systems was reviewed with the patient. It was positive for stage 2 chronic kidney disease, history of stroke and diabetes. She denies history of DVT, PE, hepatitis, HIV, or anesthesia problems. PHYSICAL EXAMINATION GENERAL: She is well developed, well nourished, in no acute distress. She is alert and oriented x3, pleasant mood and appropriate affect. VITAL SIGNS: She stands 5 feet 4 inches tall, weighs 200 pounds. Her blood pressure is 140/76 and her heart rate is 80. PULMONARY: Lungs are clear to auscultation bilaterally. CARDIO: Strong S1 and S2. ABDOMEN: Soft, nontender, nondistended. MUSCULOSKELETAL: Right lower extremity, the skin is intact. There are no open wounds or abrasions. She walks with an antalgic type gait favoring her right hip. She has decreased internal and external rotation of the right hip. She has 2+ dorsalis pedis pulse. Intact sensation. Her lower extremity muscle group strengths are intact at 5/5. ASSESSMENT AND PLAN: Ms. Lackey is an 82-year-old female with end-stage osteoarthritis of the right hip. She has failed conservative treatment and elected to proceed with a right total hip arthroplasty. The surgery is scheduled for 07/02/[address] Ervin discussed the risks and benefits of the surgery at today's visit and all of her questions were answered. She will follow up with Dr. Ervin 2 weeks after the surgery. MADONNA WILKERSON [id number]/[facility] #: [id number] MTDD
--- OUTSIDE RECORDS SUMMARY | 2018-07-02 05:59 | XMS REPORT ---
:1935 External Reference #:[id number] Author Organization [facility] [employer] Address [address] [place] [address] [place] [address] Phone [phone] Care Team Providers Name Role Phone Arie Sebastian MD Primary Care Physician Unavailable Payers Type Date Identification Numbers Payment Provider Subscriber Medicare Primary Policy Number: [id number] Medicare Lisa Mata PayID: [id number] [address] [place] [address] Medigap Part B Effective: 2001 Policy Number: Medicare Lisa Mata [id number] Expires: 2018 PayID: [id number] [address] [place] [address] Medigap Part B Policy Number: [id number] [employer] Lisa Mata PayID: [id number] [address] [place] [address] Problems Date Description Provider Status Onset: 07/27/2017 Dizziness and giddiness Wally Cordoba M.D. Active Onset: 07/27/2017 Abnormal gait Wally Cordoba M.D. Active Onset: 10/29/2017 Abnormal involuntary movement Wally Cordoba M.D. Active Onset: 10/29/2017 Amnesia Wally Cordoba M.D. Active Onset: 03/08/2018 Essential hypertension Maxine Blackburn NP Active Onset: 03/08/2018 Long-term current use of insulin Maxine Blackburn NP Active Onset: 03/08/2018 Type 2 diabetes mellitus Maxine Blackburn NP Active Onset: 05/24/2018 Localized, primary Aida Arcadio, M.D. Active osteoarthritis of the pelvic region and thigh Onset: 05/24/2018 Localized, primary Aida Ervin M.D. Active osteoarthritis Family History Date Family Member(s) Problem(s) Comments Father Hypertension Father due to [place] () Mother Kidney Disease First Sister Breast Cancer Social History Type Date Description Comments Marital Status Lives With Spouse Occupation Homemaker Cigarette Use Never Smoked Cigarettes ETOH Use Denies alcohol use Smoking Patient has never smoked Daily Caffeine Consumes on average 2 cups of regular coffee per day Exercise Type/Frequency Exercises regularly Allergies, Adverse Reactions, Alerts Date Description Reaction Status Severity Comments 11/27/2011 Alcohol GETS HIVES IN THROAT active Drinking Alcohol Not AND THEY STOP Rubbing Alcohol BREATHING 11/27/2011 Clonidine PULSE RATE DROPS DOWN active AND GETS VERY WEAK IN KNEES 11/27/2011 Sodium Pentathol Nausea and Vomiting active Medications Medication Date Status Form Strength Qnty SIG Indications Ordering Provider Atorvastatin Active Tablets 40mg 1 by mouth Unknown Calcium /0000 every day Vitamin D-3 Active Capsules 1000Unit 1 by mouth Unknown /0000 every day Humalog Kwikpen Active Solution 100Unit/M As directed Unknown /0000 Pen-Injec L 14 units t before each meal Lantus Solostar Active Solution 100Unit/M As directed Unknown /0000 Pen-Injec L 20 units t twice daily Lisinopril Active Tablets 40mg 1 by mouth Unknown /0000 every day Metformin HCL Active Tablets 500mg 2 by mouth Unknown /0000 twice a day Metoprolol Active Tablets 25mg 1 by mouth Unknown Tartrate /0000 twice a day Aspir-81 Active Tablets 81mg 1 by mouth Unknown /0000 DR every day Cyanocobalamin Active Tablets 1000mcg take one Unknown /0000 Sub capsule/tab let daily sublinguall y twice daily [place] 3 Active Capsules 1000mg 1 tab by Unknown /0000 mouth once daily Ranitidine HCL Active Tablets 150mg take one Unknown /0000 tablet by mouth twice a day Hydrochlorothiazid Active Tablets 25mg 1 by mouth Unknown e /0000 every day Amlodipine Hx Tablets 10mg 1 by mouth Unknown Besylate /0000 every day - 06/18 Hdnyw-3-Xavb Ethyl Hx Capsules 1gm take one Unknown Esters /0000 capsule by - mouth once 10/28 a day Ranitidine HCL Hx Capsules 150mg 1 by mouth Unknown /0000 twice a day - 10/28 So Lif Enacin Hx 5mg 1 tab by Unknown /0000 mouth once - daily 06/25 Hydrochlorothiazid Hx Tablets 25mg 1 by mouth Unknown e /0000 every day Vital Signs Date Vital Result Comment 06/19/2018 Height 64 inches 5'4" Weight 200.00 lb Heart Rate 80 /min BP Systolic 140 mmHg BP Diastolic 76 mmHg BMI (Body Mass Index) 34.3 kg/m2 05/24/2018 Height 64 inches 5'4" Weight 203.75 lb Heart Rate 56 /min BP Systolic 138 mmHg BP Diastolic 70 mmHg Respiratory Rate 18 /min Body Temperature 98.4 F Pain Level 7 BMI (Body Mass Index) 35.0 kg/m2 04/26/2018 Heart Rate 72 /min BP Systolic 136 mmHg BP Diastolic 68 mmHg Respiratory Rate 16 /min Body Temperature 96.6 F 04/25/2018 Height 64 inches 5'4" Weight 198.00 lb Heart Rate 72 /min BP Systolic 136 mmHg BP Diastolic 84 mmHg BMI (Body Mass Index) 34.0 kg/m2 03/26/2018 Heart Rate 62 /min BP Systolic 170 mmHg BP Diastolic 82 mmHg Respiratory Rate 16 /min Body Temperature 97.4 F 03/15/2018 Height 64 inches 5'4" Weight 200.00 lb Heart Rate 72 /min BP Systolic Sitting 128 mmHg BP Diastolic Sitting 68 mmHg Respiratory Rate 18 /min Body Temperature 97.2 F BMI (Body Mass Index) 34.3 kg/m2 10/29/2017 Height 64 inches 5'4" Weight 202.00 lb Heart Rate 68 /min BP Systolic 170 mmHg BP Diastolic 82 mmHg Respiratory Rate 16 /min BMI (Body Mass Index) 34.7 kg/m2 07/27/2017 Height 64 inches 5'4" Weight 202.00 lb per pt Heart Rate 64 /min reg BP Systolic Sitting 166 mmHg Lue, lg cuff BP Diastolic Sitting 84 mmHg Lue, lg cuff Respiratory Rate 16 /min BMI (Body Mass Index) 34.7 kg/m2 06/26/2017 Height 64 inches 5'4" Weight 202.00 lb Heart Rate 78 /min BP Systolic Sitting 148 mmHg BP Diastolic Sitting 64 mmHg Respiratory Rate 16 /min BMI (Body Mass Index) 34.7 kg/m2 Results Test Date Test Result H/L Range Note Laboratory test 04/18/2018 Surgical Pathology SEE RESULT 1 finding BELOW Laboratory test 04/18/2018 Point of Care 157 mg/dL High 70-100 2 finding Glucose Laboratory test 03/21/2018 Surgical Pathology SEE RESULT 3, 4 finding BELOW Laboratory test 06/26/2017 TSH (Thyroid Stim 3.54 mcIU/mL 0.34-5.60 finding Horm) Free Thyroxine Index 06/26/2017 Thyroxine Binding 1.1 TBI 0.8 - 1.3 (Fti),Serum Panel Capacity, S Thyroxine, Total, S 6.3 g/dL 4.5 - 11.7 Free Thyroxine Index 5.7 g/dL 4.8 - 12.7 5 Vitamin B12 And Folate Serum 06/26/2017 Vitamin B12 238 pg/mL 180-914 6 Folic Acid (Folate) > 20.00 ng/mL >3.99 Creatinine 06/26/2017 Creatinine 1.14 mg/dL High 0.51-0.95 Egfr Non- 45.9 >60 Egfr 59.0 >60 7 Comp Metabolic Panel 03/20/2013 Sodium 138 mmol/L 133-145 Potassium 5.1 mmol/L High 3.5-5.0 Chloride 105 mmol/L 101-111 Co2 Carbon Dioxide 27.0 mmol/L 22-32 Anion Gap 6.0 mmol/L 2-11 Glucose 151 mg/dL High 70-100 Blood Urea Nitrogen 23 mg/dL 6-24 Creatinine 1.10 mg/dL 0.50-1.40 BUN/Creatinine Ratio 20.9 High 8-20 Calcium 10.2 mg/dL High 8.1-9.9 Total Protein 5.7 g/dL Low 6.2-8.1 Albumin 3.7 g/dL 3.2-5.2 Globulin 2.0 g/dL 2-4 Albumin/Globulin Ratio 1.9 1-3 Total Bilirubin 0.7 mg/dL 0.4-1.5 Alkaline Phosphatase 77 U/L 30-110 Alt 26 U/L 14-54 Ast 20 U/L 12-42 Egfr Non- 48.3 >60 Egfr 62.1 >60 8 1 SEE RESULT BELOW Name: LISA MATA : [address]: Jamie Costa MD Acct: [id number] Unit: [id number] AGE: 82 Location: [facility] Re04/18/18 SEX: F Status: [facility] SPEC: [id number] KAY: 04/18/18- [facility] DR: Jamie Costa MD REQ: [id number] RECD: 04/18/18 STATUS: SOUT _ ORDERED: LEVEL 5/2 FINAL DIAGNOSIS 1. Breast, right, needle localization excision: -- Invasive ductal adenocarcinoma of breast, with: Size: 11 mm. Overall Seymour grade: 2/3 (6/9 points). Tubule formation: 3. Nuclear grade: 2. Mitotic count: 1. Margins: Invasive carcinoma approaches to 5 mm of the inferior anterior mid margin. Lymphovascular invasion: Not seen. Skin: Not involved. Chest-wall / pectoralis involvement: Not applicable. Ductal carcinoma in situ (DCIS): Present. Size: 6 mm. Extent and distribution: Seen in association with invasive carcinoma, not extensive. Architectural pattern: Solid and cribriform. Nuclear grade: 2. Necrosis: Present. Margins: DCIS clear of inked surgical margins by greater than 5 mm. ER, SD, Her2/arnie by immunohistochemistry with appropriate controls: ER: Positive, 3+ , 100% of invasive tumor. See comment. SD: Negative, 1+ staining in 1% of invasive tumor. See comment. Her2/arnie: Negative (1+). Microcalcifications: Present, in association with DCIS. Other findings: None. pTNM histopathologic stage: pT1c Nx M N/A. 2. Breast, right, additional deep and medial tissue, excision: -- Inactive breast tissue. -- No evidence of neoplasia identified. Comment: The above reported hormone receptor studies are from CONTINUED ON NEXT PAGE DEPARTMENT OF PATHOLOGY, [address] [place] [address] Markell Mansfield M.D. Director [facility] # [id number] RUN DATE: 04/23/18 [facility] LAB LIVE PAGE 2 Patient: LISA MATA [id number] (Continued) SPECIMEN COMMENTS (Continued) prior biopsy case S1 8?[address] Daniel has reviewed this case and concurs. PRE-OPERATIVE DIAGNOSIS Unspecified lump in the right breast; 1) long suture lateral, medium suture medial, short suture superior 2) suture shows true margin GROSS DESCRIPTION 1. The specimen is received fresh labeled, Right Breast Excision, Usual Markings Sutures, and consists of an 8.2 x 6.3 by up to 2.6 cm yellow pink ovoid portion of fibrofatty soft tissue with three attached sutures which are designated as follows: long- lateral, short-superior and medium-medial. The specimen is partially surfaced by a 4.2 x 1.0 cm grace-white wrinkled skin ellipse on the mid anterolateral lateral surface. There is a needle localization wire entering the specimen through the skin ellipse and extending towards the medial specimen. There is a 1.1 x 0.9 x 0.7 cm yellow indurated focally granular grace-red ill-defined lesion within the medial specimen associated with the localization wire, 0.2 cm from the inferior anterior and medial margins and 0.6 cm from the deep margin. The remaining cut surface consists predominantly of yellow lobulated adipose tissue with scant interspersed grace-pink fibrous tissue. The specimen is inked as follows: superior anterior-blue, inferior anterior-green and deep-black, serially sectioned from lateral to medial and branch customer service representative sections are submitted in cassettes A through I to include lesion in cassettes F through I including medial margin in cassette I. 2. The specimen is received in formalin labeled, Additional Deep and Medial Tissue, Suture True Margin, and consists of a 5.2 x 4.5 by up to 1.5 cm yellow ovoid portion of fibrofatty soft tissue with one attached suture which designates the true margin. The cut surface consists predominantly of yellow lobulated adipose tissue with scant interspersed grace-white fibrous tissue and mild focal hemorrhage. A discrete lesion is not identified. The true margin is inked, the specimen is serially sectioned and branch customer service representative sections are submitted in cassettes A through G. Signed by and Reported on: Markell Mansfield MD 1625 END OF REPORT DEPARTMENT OF PATHOLOGY, [address] [place] [address] Markell Mansfield M.D. Director [facility] # [id number] 2 [employer] Manager: [id number] SEE RESULT BELOW Name: LISA MATA : [address]: Jamie Costa MD Acct: [id number] Unit: [id number] AGE: 82 Location: [facility] Re03/21/18 SEX: F Status: REG REF SPEC: [id number] KAY: 03/21/18-[address] [facility] DR: Scar Riley MD REQ: [id number] RECD: 03/21/18-1240 STATUS: LEANDRO FELIX DR: Jamie Costa MD _ ORDERED: LEVEL 4, IMMUNO-FIRST, IMMUNO-ADDL, IMMUNO-QUANT/3 COMMENTS: [id number] Immunohistochemical stains, with appropriately reacting controls, were performed with the following results: ER strongly positive, nearly 100% tumor cells SD weakly positive, approximately 1% of tumor cells HER-2/arnie negative (1+) HMWCK negative E-Cadherin positive Addendum Signed (signature on file) Colleen Daniel MD 1215 FINAL DIAGNOSIS Breast, right, 10:00, 6?7 cm from nipple, core biopsy: -- Invasive ductal adenocarcinoma of breast, with: Size: 7 mm. Tumor extent and distribution: Involves central portions of 3 of 3 sampled cores. Estimated Seymour grade: Estimated tubule formation: 3. Estimated nuclear grade: 2. Estimated mitotic count: 1. Combined [place] histologic grade: 2/3. (6/9 points). Lymphovascular invasion: Not identified. Ductal Carcinoma in situ (DCIS): Present. Size: 3.5 mm. Extent and distribution: Adjacent to invasive carcinoma. Architectural pattern: Cribriform type. Nuclear grade: Intermediate. Necrosis: Present. ER, SD, and Her2/Arnie by immunohistochemistry with appropriate controls: ER: Pending; results will be reported in an addendum. SD: Pending; results will be reported in an addendum. Her2/Arnie: Pending; results will be reported in an addendum. Microcalcifications: Not identified. Other findings: None. CONTINUED ON NEXT PAGE DEPARTMENT OF PATHOLOGY, [address] [place] [address] Markell Mansfield M.D. Director [facility] # [id number] RUN DATE: 03/26/18 [facility] LAB LIVE PAGE 2 Patient: LISA MATA Susu [id number] (Continued) FINAL DIAGNOSIS (Continued) Predicted pTNM histopathologic stage: at least pT1b. COMMENT: Dr. Mansfield reviewed this case in intradepartmental consultation and agrees with the diagnosis. PRE-OPERATIVE DIAGNOSIS Right breast mass at 10:00, 6-7 cm from nipple 0.7 x 0.5 x 1.0 cm GROSS DESCRIPTION The specimen is received in formalin labeled, Right Breast Core Biopsies, and consists of three yellow to grace-white fibrofatty soft tissue cores averaging 1.1 x 0.2 cm which are submitted entirely in one cassette. Signed by and Reported on: Colleen Daniel MD 03/22/18 1314 END OF REPORT DEPARTMENT OF PATHOLOGY, [address] [place] [address] Markell Mansfield M.D. Director [facility] # [id number] 5 Test Performed by: [place] [address] 6 Normal Range 180 to 914 Indeterminate Range 145 to 180 Deficient Range <145 7 Because ethnic data is not always readily available, this report includes an eGFR for both -Americans and non- Americans. The National Kidney Disease Education Program (NKDEP) does not endorse the use of the MDRD equation for patients that are not between the ages of 18 and 70, are , have extremes of body size, muscle mass, or nutritional status, or are non- or non-. According to the National Kidney Foundation, irrespective of diagnosis, the stage of the disease is based on the level of kidney function: Stage Description GFR(mL/min/1.73 m(2)) 1 Kidney damage with normal or decreased GFR 90 2 Kidney damage with mild decrease in GFR 60-89 3 Moderate decrease in GFR 30-59 4 Severe decrease in GFR 15-29 5 Kidney failure <15 (or dialysis) 8 Because ethnic data is not always readily available, this report includes an eGFR for both -Americans and non- Americans. The National Kidney Disease Education Program (NKDEP) does not endorse the use of the MDRD equation for patients that are not between the ages of 18 and 70, are , have extremes of body size, muscle mass, or nutritional status, or are non- or non-. According to the National Kidney Foundation, irrespective of diagnosis, the stage of the disease is based on the level of kidney function: Stage Description GFR(mL/min/1.73 m(2)) 1 Kidney damage with normal or decreased GFR 90 2 Kidney damage with mild decrease in GFR 60-89 3 Moderate decrease in GFR 30-59 4 Severe decrease in GFR 15-29 5 Kidney failure <15 (or dialysis) Procedures Date CPT Code Description Status 04/18/2018 28618 Mastectomy Partial Completed 04/18/2018 Mammogram Completed 03/21/2018 Mammogram Completed 03/13/2018 Mammogram Completed 10/01/2014 Colonoscopy Completed 11/08/2012 84205 Rad Exam; Hip Unilat Completed 11/08/2012 08536 Rad Exam; Pelvis Completed 10/25/2011 36605 Rad Exam; Hip Unilat Completed 10/25/2011 91387 Rad Exam; Pelvis Completed Encounters Type Date Location Provider CPT E/M Dx Office Visit 05/24/2018 [facility] Aida Ervin M.D. 88758 M25.551 9:30a Of [facility] M16.11 Office Visit 04/25/2018 10:15a [facility] Janel Cordoba M.D. 28793 R42 Services [facility] I10 R41.3 R25.1 R26.89 E11.22 Office Visit 03/26/2018 12:30p [facility] Costa, 48176 N63.10 Faustino Brumfield Office Visit 03/15/2018 11:00a [facility] Costa, 96936 N63.10 Faustino Brumfield Office Visit 03/08/2018 1:32p [facility],kalpana Goodman 79995 I10 Hospitalists ABDIRIZAK Blackburn R42 Z79.4 E11.22 Office Visit 10/29/2017 10:15a [facility] Wally Cordoba M.D. 00532 R42 [facility] R26.89 R25.1 R41.3 Office Visit 07/27/2017 10:15a [facility] Wally Cordoba M.D. 73073 R42 Services Of Music Engineer R26.89 Office Visit 06/26/2017 11:15a [facility] Wally Cordoba M.D. 91736 R42 [facility] R26.89 Z86.73 R53.82 R25.1 Office Visit 04/08/2013 3:00p [facility] Hugo Marcus, 66629 721.3 Of Faustino Cristobal.Sen Office Visit 01/01/2013 1:30p [facility] Jose James M.D. 29256 722.93 C.M.A. 715.95 Office Visit 11/08/2012 10:00a [facility] Jose James M.D. 59835 722.93 C.M.A. 357.2 Office Visit 11/27/2011 9:45a [facility] Eduardo Steward, 43610 724.2 Faustino Brumfield 722.93 Office Visit 11/08/2011 2:00p [facility] Jose James M.D. 86281 722.93 C.M.A. Office Visit 10/25/2011 9:00a [facility] James M.D. 59711 715.95 C.M.A. 722.93 Plan of Care Future Appointment(s):07/12/2018 10:15 am - Aida Ervin M.D. at [facility]06/28/2018 10:00 am - Wally Cordoba M.D. at [place] [facility]07/02/2018 1:30 pm - Aida Ervin M.D. at [facility]07/26/2018 10:00 am - Wally Cordoba M.D. at [place] [facility]06/19/2018 - Aida Ervin M.D.M25.551 Pain in right hipFollow up:Follow up: 2 weeks after uontyncU43.11 Unilateral primary osteoarthritis, right hip
--- OUTSIDE RECORDS SUMMARY | 2018-07-02 05:59 | XMS REPORT ---
:1935 External Reference #:[id number] Author Organization [facility] Address [address] [place] [address] [place] [address] Phone [phone] Care Team Providers Name Role Phone Arie Sebastian MD Primary Care Physician Unavailable Payers Type Date Identification Numbers Payment Provider Subscriber Medicare Primary Policy Number: [id number] Medicare Lisa Mata PayID: [id number] [address] [place] [address] Medigap Part B Effective: 2001 Policy Number: Medicare Lisa Mata [id number] Expires: 2018 PayID: [id number] [address] [place] [address] Medigap Part B Policy Number: [id number] [employer] Lisa Mata PayID: [id number] [address] [place] [address] Problems Date Description Provider Status Onset: 07/27/2017 [...] Marital Status Lives With Spouse Occupation Homemaker Hand Dominance Left-handed Cigarette Use Never Smoked Cigarettes ETOH Use [...] capsule/tab let daily sublinguall y twice daily Halma 3 Active Capsules 1000mg 1 tab by Unknown /0000 mouth once daily Ranitidine HCL Active Tablets 150mg take one Unknown /0000 tablet by mouth twice a day Hydrochlorothiazid Active Tablets 25mg 1 by mouth Unknown e /0000 every day Amlodipine Hx Tablets 10mg 1 by mouth Unknown Besylate /0000 every day - 06/18 Pjund-1-Zbyw Ethyl Hx Capsules 1gm take one Unknown [...] day Vital Signs Date Vital Result Comment 06/28/2018 Height 64 inches 5'4" Weight 198.00 lb Heart Rate 76 /min BP Systolic 162 mmHg BP Diastolic 72 mmHg Respiratory Rate 16 /min BMI (Body Mass Index) 34.0 kg/m2 06/19/2018 Height 64 inches 5'4" Weight 200.00 [...] Test Date Test Result H/L Range Note Urinalysis Profile 06/19/2018 Urine Color Yellow Urine Appearance Clear Urine Specific [place] 1.023 1.010-1.030 Urine pH 5.0 5-9 Urine Urobilinogen Negative Negative Urine Ketones Negative Negative Urine Protein Negative Negative Urine Leukocytes Trace Negative Urine Blood Negative Negative * * Negative 1 Urine Nitrite Negative Negative Urine Bilirubin Negative Negative Urine Glucose Negative Negative Urine White Blood Cell Trace(0-5/hpf) Absent Urine Red Blood Cell 1+(3-5/hpf) Absent Urine Bacteria Absent Absent Urine Squamous Epithelial Cell Present Absent Type & Screen 06/19/2018 Patient Blood Type O Positive Antibody Screen NEGATIVE Urine Culture And 06/19/2018 Urine Culture SEE RESULT 2 Sensitivities BELOW Laboratory test 04/18/2018 Surgical Pathology SEE RESULT 3 finding BELOW Laboratory test 04/18/2018 Point of Care 157 mg/dL High 70-100 4 finding Glucose Laboratory test 03/21/2018 Surgical Pathology SEE RESULT 5, 6 finding BELOW Laboratory test 06/26/2017 TSH (Thyroid Stim 3.54 mcIU/mL 0.34-5.60 finding Horm) Free Thyroxine Index 06/26/2017 Thyroxine Binding 1.1 TBI 0.8 - 1.3 (Fti),Serum Panel Capacity, S Thyroxine, Total, S 6.3 g/dL 4.5 - 11.7 Free Thyroxine Index 5.7 g/dL 4.8 - 12.7 7 Vitamin B12 And Folate Serum 06/26/2017 Vitamin B12 238 pg/mL 180-914 8 Folic Acid (Folate) > 20.00 ng/mL >3.99 Creatinine 06/26/2017 Creatinine 1.14 mg/dL High 0.51-0.95 Egfr Non- 45.9 >60 Egfr 59.0 >60 9 Comp Metabolic Panel 03/20/2013 Sodium 138 mmol/L [...] Egfr Non- 48.3 >60 Egfr 62.1 >60 10 1 *Ascorbic acid is present which may interfere with detection of blood. 2 SEE RESULT BELOW Name: LISA MATA : [address]: Aida Ervin MD Acct: [id number] Unit: [id number] AGE: 82 Location: [facility] Re06/19/18 SEX: F Status: REG REF SPEC: [id number] KAY: 06/19/18-[address]: Aida Ervin MD REQ: [id number] RECD: 06/19/18 STATUS: COMP _ SOURCE: URINE SPDESC: ORDERED: Urine Culture QUERIES: Urine Source: Clean Catch Procedure Result Reported Site Urine Culture Final 06/20/18- 162 ML No Growth (<1,000 CFU/mL) * ML - Main Lab . END OF REPORT DEPARTMENT OF PATHOLOGY, [address] [place] [address] Markell Mansfield M.D. Director [facility] # [id number] 3 SEE RESULT BELOW Name: LISA MATA : [address]: Jamie Costa MD Acct: [id number] Unit: [id number] AGE: 82 Location: [facility] Re04/18/18 SEX: F Status: DEP SDC SPEC: [id number] KAY: 04/18/18- SUBM DR: Jamie Costa MD REQ: [id number] RECD: 04/18/18 STATUS: SOUT _ ORDERED: LEVEL [...] margins by greater than 5 mm. ER, RI, Her2/arnie by immunohistochemistry with appropriate controls: ER: Positive, 3+ , 100% of invasive tumor. See comment. RI: Negative, 1+ staining in 1% of invasive [...] CONTINUED ON NEXT PAGE DEPARTMENT OF PATHOLOGY, [address] [place] [address] Markell Mansfield M.D. Director [facility] # [id number] RUN DATE: 04/23/18 [facility] LAB LIVE PAGE 2 Patient: IRINEO MATARAYMOND Cristobal [id number] (Continued) SPECIMEN COMMENTS (Continued) prior biopsy case [...] serially sectioned from lateral to medial and customer solutions representative sections are submitted in cassettes A [...] inked, the specimen is serially sectioned and customer solutions representative sections are submitted in cassettes A through G. Signed by and Reported on: Markell Mansfield MD 1625 END OF REPORT DEPARTMENT OF PATHOLOGY, [address] [place] [address] Markell Mansfiled M.D. Director [facility] # [id number] 4 Breading Machine Tender: [id number] 6 SEE RESULT BELOW Name: LISA MATA : [address]: Jamie Costa MD Acct: [id number] Unit: [id number] AGE: 82 Location: [facility] Re03/21/18 SEX: F Status: REG REF SPEC: [id number] KAY: 03/21/18-[address] [facility] [address]: Scar Riley MD REQ: [id number] RECD: 03/21/18-1240 STATUS: LEANDRO FELIX DR: Jamie Costa MD _ ORDERED: LEVEL 4, IMMUNO-FIRST, IMMUNO-ADDL, IMMUNO-QUANT/3 COMMENTS: [id number] Immunohistochemical stains, with appropriately reacting controls, were performed with the following results: ER strongly positive, nearly 100% tumor cells RI weakly positive, approximately 1% of tumor cells [...] grade: 2. Estimated mitotic count: 1. Combined [place] histologic grade: 2/3. (6/9 points). Lymphovascular invasion: Not identified. Ductal Carcinoma in situ (DCIS): Present. Size: 3.5 mm. Extent and distribution: Adjacent to invasive carcinoma. Architectural pattern: Cribriform type. Nuclear grade: Intermediate. Necrosis: Present. ER, RI, and Her2/Arnie by immunohistochemistry with appropriate controls: ER: Pending; results will be reported in an addendum. RI: Pending; results will be reported in an addendum. Her2/Arnie: Pending; results will be reported in an addendum. Microcalcifications: Not identified. Other findings: None. CONTINUED ON NEXT PAGE DEPARTMENT OF PATHOLOGY, [address] [place] [address] Markell Mansfield M.D. Director [facility] # [id number] RUN DATE: 03/26/18 [facility] LAB LIVE PAGE 2 Patient: IRINEO MATARAYMOND Cristobal [id number] (Continued) FINAL DIAGNOSIS (Continued) Predicted pTNM histopathologic [...] 1314 END OF REPORT DEPARTMENT OF PATHOLOGY, [address] [place] [address] Markell Mansfield M.D. Director [facility] # [id number] 7 Test Performed by: [address] [id number] 8 Normal Range 180 to 914 Indeterminate Range 145 to 180 Deficient Range <145 9 Because ethnic data is not always readily [...] 15-29 5 Kidney failure <15 (or dialysis) 10 Because ethnic data is not always readily [...] Procedures Date CPT Code Description Status 04/18/2018 00967 Mastectomy Partial Completed 04/18/2018 Mammogram Completed 03/21/2018 Mammogram Completed 03/13/2018 Mammogram Completed 10/01/2014 Colonoscopy Completed 11/08/2012 71084 Rad Exam; Hip Unilat Completed 11/08/2012 63258 Rad Exam; Pelvis Completed 10/25/2011 23932 Rad Exam; Hip Unilat Completed 10/25/2011 53853 Rad Exam; Pelvis Completed Encounters Type Date Location Provider CPT E/M Dx Office Visit 05/24/2018 [facility] Aida Ervin M.D. 63005 M25.551 9:30a Of David M16.11 Office Visit 04/25/2018 10:15a [facility] Wally Cordoba M.D. 53507 R42 Services Of [facility] I10 R41.3 R25.1 R26.89 E11.22 Office Visit 03/26/2018 12:30p [facility] Costa, 81290 N63.10 Faustino Brumfield Office Visit 03/15/2018 11:00a [facility] Costa, 90735 N63.10 [facility] Brissa Office Visit 03/08/2018 1:32p [facility] Maxine 78438 I10 Hospitalists ABDIRIZAK Blackburn R42 Z79.4 E11.22 Office Visit 10/29/2017 10:15a [facility] Wally Cordoba M.D. 89352 R42 Services Of [facility] Specialist R26.89 R25.1 R41.3 Office Visit 07/27/2017 10:15a [facility] Wally Cordoba M.D. 64302 R42 Services [facility] Specialist R26.89 Office Visit 06/26/2017 11:15a [facility] Wally Cordoba M.D. 66038 R42 Services Of [facility] R26.89 Z86.73 R53.82 R25.1 Office Visit 04/08/2013 3:00p [facility] Hugo Marcus, 75272 721.3 Of Faustino Brumfield Office Visit 01/01/2013 1:30p [facility] M.D. 21139 722.93 [facility] 715.95 Office Visit 11/08/2012 10:00a [facility] M.D. 24422 722.93 C.M[facility]A. 357.2 Office Visit 11/27/2011 9:45a [facility] Of Eduardo Keena Steward, 89785 724.2 Faustino Brumfield 722.93 Office Visit 11/08/2011 2:00p [facility] M.D. 67246 722.93 C.M.A. Office Visit 10/25/2011 9:00a [facility] M.D. 16460 715.95 C.M.A. 722.93 Plan of Care Future Appointment(s):01/02/2019 9:30 am - Wally Cordoba M.D. at [facility]07/02/2018 3:30 pm - Clive Ryan PA-C at [facility]07/02/2018 3:30 pm - MADONNA Medrano at [facility]07/12/2018 10:15 am - Aida Ervin M.D. at [facility]07/02/2018 3:30 pm - Aida Ervin M.D. at [facility]06/28/2018 - Wally Cordoba M.D.R41.3 Other amnesiaFollow up:Follow up in December 2018R25.1 Tremor, unspecified
[2018-07-02] MEDS ORDERED: Metoclopramide IV* 5 MG/ML 2 ML VIAL IV SLOW PU ONE (06:00)
[2018-07-02] MEDS ORDERED: ceFAZolin 2 GM in NS PREMIX(*) 2 GM/100 ML BAG IVPB ONE (06:08)
[2018-07-02] MEDS ORDERED: Metoclopramide IV* 5 MG/ML 2 ML VIAL ONE (06:08)
[2018-07-02] MEDS ORDERED: Propofol* 10 MG/ML 20 ML BTL IV PUSH ONE ×2 (06:58→08:31)
[2018-07-02] MEDS ORDERED: Ondansetron INJ* 2 MG/ML VIAL ONE (06:58)
[2018-07-02] MEDS ORDERED: Lidocaine 2% PF * 5 ML VIAL ONE ×2 (06:58→07:20)
[2018-07-02] MEDS ORDERED: Dexamethasone IV* 4 MG/ML 1 ML (4 MG) ONE (06:58)
[2018-07-02] MEDS ORDERED: Ketorolac INJ* 30 MG/ML 1 ML VIAL ONE (06:58)
[2018-07-02] MEDS ORDERED: fentaNYL* 50 MCG/ML 2 ML VIAL (100 MCG VIAL) ONE (06:58)
[2018-07-02] MEDS ORDERED: Midazolam* 1 MG/ML 5 ML VIAL (5 MG) ONE (06:59)
[2018-07-02] MEDS ORDERED: KETAMINE HCL* 50 MG/ML 10 ML VIAL ONE (06:59)
[2018-07-02] MEDS ORDERED: Bupivacaine 0.5% SDV PF* 30ML VIAL ONE ×2 (07:20→09:54)
[2018-07-02] MEDS ORDERED: Phenylephrine INJ* 10 MG/ML 1 ML VIAL (10 MG) ONE (07:51)
[2018-07-02] MEDS ORDERED: EPHEDrine (Pressors)* 50 MG/ML VIAL ONE (08:28)
[2018-07-02] MEDS ORDERED: Naloxone* 0.4 MG/ML 1 ML VIAL IV PRN (09:16)
[2018-07-02] MEDS ORDERED: fentaNYL* 50 MCG/ML 2 ML VIAL (100 MCG VIAL) IV PRN (09:16)
[2018-07-02] MEDS ORDERED: Ondansetron ODT TAB* 4 MG PO PRN (09:16)
[2018-07-02] MEDS ORDERED: EPHEDrine (Pressors)* 50 MG/ML VIAL IV PUSH PRN (09:20)
[2018-07-02] MEDS ORDERED: Ondansetron INJ* 2 MG/ML VIAL IV PRN (09:20)
--- NOTE | 2018-07-02 09:40 | RAD ---
HISTORY: HIP IN OR X TABLE COMPARISONS: None VIEWS: 1 , portable intraoperative view of the hip during arthroplasty. FINDINGS: Single portable view of the pelvis during hip arthroplasty demonstrates bilateral hip arthroplasty, with a temporary femoral sizing component on the right. IMPRESSION: LIMITED PORTABLE VIEW OF THE PELVIS TO HIP ARTHROPLASTY.
[2018-07-02] MEDS ORDERED: Ropivacaine* 300 MG in NS 0.9% 250 ML* 240 ML EPIDURAL SCH ×2 (10:00→13:00)
[2018-07-02] MEDS ORDERED: Magnesium Hydroxide LIQ* 30 ML UDC PO PRN (10:16)
[2018-07-02] MEDS ORDERED: oxyCODONE TAB* 5 MG TAB PO PRN (10:16)
[2018-07-02] MEDS ORDERED: Bisacodyl SUPP* 10 MG SUPP PR PRN (10:16)
[2018-07-02] MEDS ORDERED: oxyCODONE/Acetamin 5/325 MG* TAB PO PRN (10:16)
[2018-07-02] MEDS ORDERED: Morphine INJ* 4 MG/ML 1 ML SYRINGE (NEW SYRINGE VERSION) IV PRN (10:16)
[2018-07-02] MEDS ORDERED: diPHENhydraMINE IV* 50 MG/ML 1 ml VIAL (BENADRYL) IV PRN (10:16)
--- NOTE | 2018-07-02 11:25 | RAD ---
INDICATION: Postop RIGHT total hip replacement. Comparison: Intraoperative exam of the same date. Technique: AP pelvis and proximal femurs. AP and crosstable lateral views RIGHT hip. Report: Newly placed RIGHT total hip prosthesis is normally located and without evidence for periprosthetic fracture. Overlying soft tissue edema and emphysema. Unremarkable appearance of the prosthetic LEFT hip in the AP projection. Peripheral vascular calcifications. IMPRESSION: #. Unremarkable immediate postop appearance of the RIGHT total hip replacement.
[2018-07-02] MEDS: Acetaminophen TAB* 325 MG PO SCH ×2 (13:29→19:28)
[2018-07-02] MEDS ORDERED: Dextrose 50% Syringe 50 ML* 25 GM/50 ML SYRINGE IV PUSH PRN (15:01)
--- NOTE | 2018-07-02 15:45 | PN ---
Progress Note - Progress Note Date of Service: 07/02/18 SOAP: Subjective: [Pt was seen sitting in chair today. States that she is doing quite well, no pain at this time. ] Objective: [General: A&Ox3, NAD MSK, RLE: Dressing is c/d/i. no calf pain, +df/pf, 2+ DP pulse, NVI. ] Vital Signs Temp 97.1 F 07/02/18 13:56 Pulse 73 07/02/18 13:56 Resp 16 07/02/18 13:56 BP 149/56 07/02/18 13:56 Pulse Ox 95 07/02/18 13:56 Intake & Output 07/01/18 07/02/18 07/02/18 18:59 06:59 18:59 Intake Total 2910 Output Total 400 Balance 2510 Weight 201 lb Intake: IV Fluids 1950 LR 1850 NS 100ML, Cefazolin 2G 100 Oral 960 Output: Garcia 400 Assessment: [POD 0 RTHA] Plan: [- Continue with post op abx - Continue with pain management - 6mg of warfarin tonight - lovenox to start tomorrow - PT/OT ]
[2018-07-02] MEDS: ceFAZolin 1 GM in Dextrose (*) 1 GM/50 ML BAG IVPB SCH ×2 (16:14→23:33)
[2018-07-02] MEDS ORDERED: Warfarin TAB(*) 6 MG PO ONE (17:00)
[2018-07-02] MEDS: Insulin LISPRO* 1 UNITS UNIT SUBCUT SCH ×3 (17:16→22:35)
[2018-07-02] MEDS: Atorvastatin* 40 MG TAB PO SCH (18:27)
[2018-07-02] MEDS: Magnesium Hydroxide LIQ* 30 ML UDC PO SCH (22:33)
[2018-07-02] MEDS: Docusate CAP* 100 MG PO SCH (22:33)
[2018-07-02] MEDS: Metoprolol Tartrate TAB* 25 MG PO SCH (22:34)
[2018-07-02] MEDS: Insulin GLARGINE(*) 1 UNITS UNIT SUBCUT SCH (22:34)
[2018-07-03] MEDS: Acetaminophen TAB* 325 MG PO SCH ×3 (01:29→17:56)
[2018-07-03] MEDS: oxyCODONE/Acetamin 5/325 MG* TAB PO PRN ×3 (05:55→21:01)
[2018-07-03] MEDS ORDERED: Ondansetron INJ* 2 MG/ML VIAL IV PRN (06:00)
[2018-07-03 07:09] LABS: Hematocrit 31 % (35-47); Hemoglobin 10.3 g/dl (12.0-16.0); Mean Platelet Volume 7.4 um3 (7.4-10.4); Platelet Count 188 10^3/ul (150-450)
[2018-07-03 07:34] LABS: EGFR Non-African American 45.3 (>60)
[2018-07-03] MEDS: Insulin LISPRO* 1 UNITS UNIT SUBCUT SCH ×7 (08:14→17:53)
[2018-07-03] MEDS: Insulin GLARGINE(*) 1 UNITS UNIT SUBCUT SCH ×3 (08:15→21:01)
[2018-07-03] MEDS: ceFAZolin 1 GM in Dextrose (*) 1 GM/50 ML BAG IVPB SCH (08:29)
--- NOTE | 2018-07-03 08:40 | PN ---
Subjective - Subjective Reason for Note: Consultation Note History: Endocrine/internal medicine consultation. She is 1 day post operative right total hip arthroplasty. She is walking with a walker in the hallway outside her room with PT and states she has no pain. She denies chest pain, dypsnea, palpitations. She was eating last night and sitting out of a chair. She denies any pain from her surgery. The main issue is hyperglycemia. She usually takes lantus insulin 22 units [id number] and humalog 14 units AC. Current Medications: Current Medications Acetaminophen (Tylenol Tab*) 650 mg PO Q8H [facility] Last Admin: 07/03/18 01:29 Dose: 650 mg Atorvastatin Calcium (Lipitor*) 40 mg PO QPM [facility] Last Admin: 07/02/18 18:27 Dose: 40 mg Bisacodyl (Dulcolax Supp*) 10 mg LA DAILY PRN PRN Reason: constipation Dextrose (D50w Syringe 50 Ml*) 12.5 gm IV PUSH .FOR FS < 60 - SS PRN PRN Reason: FS < 60 Diphenhydramine HCl (Benadryl Iv*) 25 mg IV Q6H PRN PRN Reason: itching Docusate Sodium (Colace Cap*) 100 mg PO BID [facility] Last Admin: 07/02/18 22:33 Dose: 100 mg Enoxaparin Sodium (Lovenox(*)) 30 mg SUBCUT Q24H [facility] Ephedrine Sulfate (Ephedrine Sulfate (Pressors)*) 5 mg IV PUSH Q5M PRN PRN Reason: HYPOTENSION Stop: 07/03/18 09:00 Hydrochlorothiazide (Hydrodiuril Tab*) 25 mg PO QAM [facility] Lactated Ringer's (Lactated Ringers 1000 Ml Bag*) 1,000 mls @ 75 mls/hr IV PER RATE [facility] Last Admin: 07/02/18 22:31 Dose: 75 mls/hr Insulin Glargine (Lantus(*)) 20 units SUBCUT BID [facility] Last Admin: 07/03/18 08:15 Dose: 20 unit Insulin Human Lispro (Humalog*) 0 units SUBCUT ACHS [facility]; Protocol Last Admin: 07/03/18 08:14 Dose: 6 units Insulin Human Lispro (Humalog*) 14 units SUBCUT AC [facility] Last Admin: 07/03/18 08:15 Dose: 14 units Lactulose (Lactulose*) 30 ml PO Q6H PRN PRN Reason: constipation Lisinopril (Prinivil Tab*) 40 mg PO QAM [facility] Magnesium Hydroxide (Milk Of Magnesia Liq*) 30 ml PO BID [facility] Last Admin: 07/02/18 22:33 Dose: Not Given Magnesium Hydroxide (Milk Of Magnesia Liq*) 30 ml PO Q6H PRN PRN Reason: constipation Metoprolol Tartrate (Lopressor Tab*) 25 mg PO BID [facility] Last Admin: 07/02/18 22:34 Dose: 25 mg Morphine Sulfate (Morphine Inj (Syringe)*) 2 mg IV Q2H PRN PRN Reason: PAIN - SEVERE Ondansetron HCl (Zofran Inj*) 4 mg IV Q6H PRN PRN Reason: nausea Oxycodone HCl (Roxycodone Tab*) 10 mg PO Q4H PRN PRN Reason: PAIN - SEVERE Oxycodone/Acetaminophen (Percocet 5/325 Tab*) 1 tab PO Q4H PRN PRN Reason: PAIN Oxycodone/Acetaminophen (Percocet 5/325 Tab*) 2 tab PO Q4H PRN PRN Reason: PAIN Last Admin: 07/03/18 05:55 Dose: 2 tab Pharmacy Profile Note (Coumadin Daily Reminder*) 1 note FOLLOW UP 1700 [facility] Last Admin: 07/02/18 17:17 Dose: 1 note Pneumococcal Polyvalent Vaccine (Pneumococcal Vac 23-Polyvalent*) 0.5 ml IM .ONCE ONE Stop: 07/03/18 09:01 Home Medications: Home Medications Medication Instructions Recorded Confirmed Type Atorvastatin* [Lipitor*] 40 mg PO QPM 10/21/12 07/02/18 History Insulin Human LISPRO(*) 14 units SUBCUT AC MDD 60u 10/21/12 07/02/18 History [Humalog(*)] Lisinopril TAB* [Prinivil TAB 10 40 mg PO QAM 10/21/12 07/02/18 History MG*] Metoprolol Tartrate TAB* 25 mg PO BID 10/21/12 07/02/18 History [Lopressor TAB*] Ranitidine TAB (NF) [Zantac TAB 150 mg PO BID 10/21/12 07/02/18 History (NF)] metFORMIN* [Glucophage 500 MG TAB 2 tab PO BID WITH MEALS 10/21/12 07/02/18 History *] Cholecalciferol TAB* [Vitamin D 1,000 unit PO QPM 03/08/18 07/02/18 History TAB*] Cyanocobalamin TAB* [Vitamin B12 1,000 mcg PO QPM 03/08/18 07/02/18 History TAB*] Lbayz-5-Rtqn Ethyl Esters (NF) 1 cap PO QAM 03/08/18 07/02/18 History [Lovaza (NF)] Hydrochlorothiazide TAB* 25 mg PO QAM 04/11/18 07/02/18 History [Hydrodiuril TAB*] Aspirin 81 mg CHEW TAB* 1 tab PO BEDTIME 06/19/18 07/02/18 History Insulin Glargine,Hum.rec.anlog 20 unit SUBCUT BID 06/19/18 07/02/18 History [Lantus Solostar 5x3 ML PENS] Allergies: Allergies Allergy/AdvReac Type Severity Reaction Status Date / Time clonidine Allergy Severe See Comment Verified 06/19/18 13:28 thiopental [From Pentothal] Allergy Severe Vomiting Verified 06/19/18 13:28 LIQUOR Allergy Hives/Diff. Uncoded 07/02/18 06:16 Breathing/I tching Objective - Vital Signs Vital Signs: Vital Signs 07/02/18 07/02/18 07/02/18 10:12 10:15 10:20 Temperature 97.3 F Pulse Rate 60 58 55 Respiratory 11 20 16 Rate Blood Pressure 134/64 134/58 128/58 (mmHg) O2 Sat by Pulse 98 98 100 Oximetry 07/02/18 07/02/18 07/02/18 10:25 10:30 10:46 Temperature Pulse Rate 57 57 56 Respiratory 21 15 18 Rate Blood Pressure 129/67 127/73 145/51 (mmHg) O2 Sat by Pulse 100 100 100 Oximetry 07/02/18 07/02/18 07/02/18 11:00 11:15 11:30 Temperature 97.3 F Pulse Rate 56 57 55 Respiratory 15 17 13 Rate Blood Pressure 148/66 137/59 137/60 (mmHg) O2 Sat by Pulse 99 97 98 Oximetry 07/02/18 07/02/18 07/02/18 11:45 12:02 12:50 Temperature 96.0 F Pulse Rate 55 56 Respiratory 14 16 18 Rate Blood Pressure 136/58 131/59 (mmHg) O2 Sat by Pulse 98 99 Oximetry 07/02/18 07/02/18 07/02/18 12:52 13:56 16:00 Temperature 96.7 F 97.1 F Pulse Rate 76 73 Respiratory 16 16 Rate Blood Pressure 135/55 149/56 (mmHg) O2 Sat by Pulse 93 95 95 Oximetry 07/02/18 07/02/18 07/02/18 16:01 17:53 19:29 Temperature 97.3 F 98.8 F Pulse Rate 69 88 Respiratory 16 18 16 Rate Blood Pressure 139/52 153/54 (mmHg) O2 Sat by Pulse 97 98 Oximetry 07/02/18 07/02/18 07/03/18 19:54 23:31 00:00 Temperature 98.0 F 99.5 F Pulse Rate 73 75 Respiratory 18 16 Rate Blood Pressure 150/51 135/56 (mmHg) O2 Sat by Pulse 98 99 99 Oximetry 07/03/18 07/03/18 07/03/18 03:55 04:07 05:55 Temperature 98.9 F Pulse Rate 70 Respiratory 16 16 Rate Blood Pressure 145/57 (mmHg) O2 Sat by Pulse 99 97 Oximetry 07/03/18 07/03/18 07/03/18 07:22 08:00 08:17 Temperature 98.2 F Pulse Rate 68 Respiratory 16 16 16 Rate Blood Pressure 124/39 (mmHg) O2 Sat by Pulse 94 94 Oximetry - Intake and Output Intake and Output: Intake & Output 06/30/18 07/01/18 07/02/18 07/03/18 11:59 11:59 11:59 11:59 Intake Total 1950 2876 Output Total 100 1175 Balance 1850 1701 Weight 201 lb Intake: IV Fluids 1950 1036 ABX - CEFAZOLIN 52 LR 1850 984 NS 100ML, Cefazolin 2G 100 Oral 1840 Output: Garcia 100 1175 ADLs: Meal Record Start: 07/02/18 11: 14 Freq: Status: Active Protocol: Created 07/02/18 11:14 [id number] (Rec: 07/02/18 11:14 [id number]) Document 07/02/18 13:16 [id number] (Rec: 07/02/18 14:44 [id number] [id number]) Intake and Output Start: 07/02/18 10: 16 Freq: 06,14,2200 Status: Active Protocol: Created 07/02/18 10:25 [id number] (Rec: 07/02/18 10:25 BKG [id number]) Document 07/02/18 14:00 [id number] (Rec: 07/02/18 14:42 [id number] SSU-C03) Document 07/02/18 23:07 [id number] (Rec: 07/02/18 23:08 [id number] SSU-C06) Document 07/03/18 05:51 [id number] (Rec: 07/03/18 05:51 [id number]) Intake and Output Start: 07/02/18 11: 14 Freq: DAILY@0600,1400,2200 Status: Active Protocol: Created 07/02/18 11:14 [id number] (Rec: 07/02/18 11:14 [id number] SSU-M14) Document 07/02/18 14:00 [id number] (Rec: 07/02/18 15:20 [id number] SSU-M14) Document 07/02/18 23:07 [id number] (Rec: 07/02/18 23:08 [id number] SSU-C06) Document 07/03/18 05:51 [id number] (Rec: 07/03/18 05:51 [id number]) - Physical Exam General Physical Exam Comment: She is walking well with a walker independently. She is in no distress. Results - Results Lab Results: Laboratory Results - last 24 hr 07/02/18 07/02/18 07/02/18 09:07 10:48 13:25 Hgb Hct Plt Count MPV INR (Anticoag Therapy) Sodium Potassium Chloride Carbon Dioxide Anion Gap BUN Creatinine Est GFR ( Amer) Est GFR (Non-Af Amer) BUN/Creatinine Ratio Glucose POC Glucose (mg/dL) 179 H 221 H 324 H Glucose Meter Confirm Calcium 07/02/18 07/02/18 07/02/18 16:40 21:23 21:38 Hgb Hct Plt Count MPV INR (Anticoag Therapy) Sodium Potassium Chloride Carbon Dioxide Anion Gap BUN Creatinine Est GFR ( Amer) Est GFR (Non-Af Amer) BUN/Creatinine Ratio Glucose POC Glucose (mg/dL) 347 H 417 H* Glucose Meter Confirm 419 H Calcium 07/03/18 07/03/18 07/03/18 06:43 06:43 06:43 Hgb 10.3 L Hct 31 L Plt Count 188 MPV 7.4 INR (Anticoag Therapy) 1.00 Sodium 135 Potassium 4.8 Chloride 104 Carbon Dioxide 25 Anion Gap 6 BUN 37 H Creatinine 1.15 H Est GFR ( Amer) 54.8 Est GFR (Non-Af Amer) 45.3 BUN/Creatinine Ratio 32.2 H Glucose 238 H POC Glucose (mg/dL) Glucose Meter Confirm Calcium 8.7 07/03/18 07:10 Hgb Hct Plt Count MPV INR (Anticoag Therapy) Sodium Potassium Chloride Carbon Dioxide Anion Gap BUN Creatinine Est GFR ( Amer) Est GFR (Non-Af Amer) BUN/Creatinine Ratio Glucose POC Glucose (mg/dL) 250 H Glucose Meter Confirm Calcium Assessment - Problem List Assessment: Patient Problems Diabetes mellitus (Acute) History of total right hip arthroplasty (Acute) Abdominal aortic aneurysm without rupture (Chronic) Arthritis (Chronic) BREAST CANCER (Chronic) CVA (Chronic) HYPERTENSION (Chronic) Hypercholesterolemia (Chronic) Plan: Hyperglycemia - she is post-op and has hyperglycemia. I will increase her lantus dosage. Likely the stress of surgery has increased her insulin resistance. I will also ensure that she is on an appropriate diet. Hypertension - controlled Pain control - excellent.
[2018-07-03] MEDS ORDERED: Dextrose 50% Syringe 50 ML* 25 GM/50 ML SYRINGE IV PUSH PRN (08:47)
[2018-07-03] MEDS: Docusate CAP* 100 MG PO SCH ×2 (08:53→21:02)
[2018-07-03] MEDS: Magnesium Hydroxide LIQ* 30 ML UDC PO SCH ×2 (08:53→21:03)
[2018-07-03] MEDS: Lisinopril TAB* 10 MG PO SCH (08:54)
[2018-07-03] MEDS: Metoprolol Tartrate TAB* 25 MG PO SCH ×2 (08:54→21:02)
[2018-07-03] MEDS: Hydrochlorothiazide TAB* 25 MG PO SCH (08:54)
[2018-07-03] MEDS ORDERED: Pneumococcal *Vac Polyvalent 0.5 ML VIAL IM ONE (09:00)
--- NOTE | 2018-07-03 09:29 | PN ---
Progress Note - Progress Note Date of Service: 07/03/18 SOAP: Subjective: []Patient was seen and examined OOB in chair. She is feeling well without complaint of hip pain or leg numbness. Denies chest pain, shortness of breath, dizziness, nausea, confusion. At home her blood sugars are usually around 200, BS has been measured at high is 417 during this stay. Home doses include lantus insulin 22 units r74fsad and humalog 14 units AC[address] This morning Dr Sebastian saw her and adjust her dosages. Objective: []General: Well appearing, NAD RLE: Right hip dressing CDI without erythema. Thigh is soft. DF/PF intact and capillary refill less than two seconds distally. DF/PF intact and Sensation intact distally. Calves are supple and nontender without erythema, edema or palpable cords Assessment: []POD 1 sp right total hip arthroplasty by Dr Ervin 07/02 hyperglycemia Plan: []WBAT PT/OT Incentive spirometry encouraged Lovenox, coumadin 8 mg today Vital Signs Temp 98.2 F 07/03/18 07:22 Pulse 68 07/03/18 07:22 Resp 16 07/03/18 08:17 BP 124/39 07/03/18 07:22 Pulse Ox 94 07/03/18 08:00 Intake & Output 07/02/18 07/03/18 07/03/18 18:59 06:59 18:59 Intake Total 2910 1916 590 Output Total 400 875 Balance 2510 1041 590 Intake: IV Fluids 1950 1036 ABX - CEFAZOLIN 52 LR 1850 984 NS 100ML, Cefazolin 2G 100 Oral 960 880 590 Output: Garcia 400 875 Laboratory Last Values Hgb 10.3 g/dl (12.0-16.0) L 07/03/18 06:43 Hct 31 % (35-47) L 07/03/18 06:43 Plt Count 188 10^3/ul (150-450) 07/03/18 06:43 MPV 7.4 um3 (7.4-10.4) 07/03/18 06:43 INR (Anticoag Therapy) 1.00 (0.77-1.02) 07/03/18 06:43 Sodium 135 mmol/L (135-145) 07/03/18 06:43 Potassium 4.8 mmol/L (3.5-5.0) 07/03/18 06:43 Chloride 104 mmol/L (101-111) 07/03/18 06:43 Carbon Dioxide 25 mmol/L (22-32) 07/03/18 06:43 Anion Gap 6 mmol/L (2-11) 07/03/18 06:43 BUN 37 mg/dL (6-24) H 07/03/18 06:43 Creatinine 1.15 mg/dL (0.51-0.95) H 07/03/18 06:43 Est GFR ( Amer) 54.8 (>60) 07/03/18 06:43 Est GFR (Non-Af Amer) 45.3 (>60) 07/03/18 06:43 BUN/Creatinine Ratio 32.2 (8-20) H 07/03/18 06:43 Glucose 238 mg/dL (70-100) H 07/03/18 06:43 POC Glucose (mg/dL) 250 mg/dL (70-100) H 07/03/18 07:10 Glucose Meter Confirm 419 mg/dL (70-100) H 07/02/18 21:38 Calcium 8.7 mg/dL (8.6-10.3) 07/03/18 06:43
[2018-07-03] MEDS ORDERED: Enoxaparin(*) 30 MG/0.3 ML SYR SUBCUT SCH (12:00)
--- NOTE | 2018-07-03 12:30 | OP ---
OPERATIVE REPORT: DATE OF OPERATION: 07/02/18 DATE OF : 37 SURGEON: Aida Ervin MD BRUSH FINISHER: MADONNA Cannon Mr. Ryan did help throughout the procedure with preparation of the leg, wound retraction, manipulat ion of the hip, and wound closure. ANESTHESIOLOGIST: Dr. Guerrero. ANESTHESIA: Spinal. PRE-OP DIAGNOSIS: Severe end-stage degenerative osteoarthritis of the right hip joint. POST-OP DIAGNOSIS: Severe end-stage degenerative osteoarthritis of the right hip joint. OPERATIVE PROCEDURE: Right total hip arthroplasty. INDICATIONS: Ms. Lackey is an 82-year-old female with severe right hip pain for many years. She faile d conservative treatment with antiinflammatories, pain medication, physical therapy, and ambulatory a ssistive devices. Her radiographs showed bone-on- bone arthritis. Due to continued pain and decreas ed quality of life, she elected to undergo right total hip arthroplasty. Informed consent was obtained from the patient. She understood the risks of the surgery included, we re not limited to, bleeding, infection, damage to nearby structures, continued pain, need for further surgery, intraoperative fracture, nerve palsy, hardware failure or loosening, dislocation, leg lengt h discrepancies, stroke, heart attack, blood clot, and . COMPLICATIONS: None. ESTIMATED BLOOD LOSS: 300 cc. SPECIMEN: Femoral head and acetabular reamings sent to Pathology. HARDWARE USED: This is uncemented Kremlin total hip hardware. For the cup, a 52D Tritanium cluster hole shell acetabular cup. For the screw, one -mm screw. For the insert, a Trident X3 0-degree polyethylene insert 36D. For the stem, an Accolade TMZF size 2.5 with a 127-degree neck angle. For the head, a 36 +2.5 ceramic delta Biolox V40 femoral head. INTRAOPERATIVE FINDINGS: Intraoperatively, the patient was noted to have severe end-stage arthritis with complete loss of cartilage along the femoral head and acetabulum. She had extensive osteophyte formation around the acetabulum. DESCRIPTION OF PROCEDURE: Ms. Lackey was identified in the preanesthesia unit. Right lower extremity w as marked as the correct operative side. Informed consent was signed and placed in the chart. The p atient was taken to the operating room and placed under spinal anesthesia. A Garcia catheter was plac ed. The patient was placed in the left lateral decubitus position on the peg board. All bony promin ences were well padded. Right lower extremity was prepped and draped in the usual sterile fashion. Preop time-out was made to correctly identify the patient's side and site. Appropriate perioperative antibiotics were given within 1 hour of incision. A 10-cm posterior hip incision was made with a 10-blade and carried down to the lateral fascial layer . Lateral fascial layer was incised in line with the skin incision. The Charnley retractor was plac ed. The piriformis and conjoint tendons were identified and elevated off the posterolateral femur using e lectrocautery. These tendons were tagged with #5 Ethibond. Electrocautery was then used to make a s tandard posterolateral capsular flap and this was also tagged with #5 Ethibond. The hip was carefull y dislocated. Lesser troch to the center of the femoral head measured 55 mm. Oscillating saw was use d to make the appropriate femoral neck cut. Femoral head was carefully removed. The femur was retrac magalie anteriorly. After appropriate placement of retractors, the acetabulum was visualized. Long- handled knife was us ed to sharply remove any remaining labrum from the rim. There was extensive osteophyte formation not ed along the acetabulum with complete loss of cartilage. The acetabulum was sequentially reamed up t o a size 51. A 51 reamer had a bleeding subchondral bone bed. The 51 trial had excellent fit and st ability. Final implants chosen were the Tritanium 52D cluster hole hemispherical shell. This was impa cted into the acetabulum without difficulty. The shell was completely stable with appropriate anteve rsion and abduction angle. A single -mm screw was placed in the superior posterior quadrant for extra stability. The polyethylene liner chosen was a Trident X3 36D polyethylene insert. This was impacted into the acetabular cup without difficulty. Stability of the liner was checked and rechecke d and noted to be stable. Attention was next turned to preparation of the femur. A canal finder was used to enter the proximal femur. Proximal femur was sequentially broached up to a size 2.5. A 2.5 broach had excellent fit a nd appropriate anteversion. A 127 neck trial was chosen as well as a +0 head trial. Lesser troch to the center of femoral head measured 53 mm. Therefore, a +2.5 head trial was chosen. Lesser troch t o the center of femoral head measured 55 mm. The hip was reduced and taken through range of motion. The hip was stable in all positions. There was good soft tissue tension and appropriate leg lengths . The hip was carefully dislocated. All trials were removed. Final implant chosen was an Accolade TMZ F size 2.5 with a 127 neck angle. This was impacted into the femoral canal without difficulty. Ther e was appropriate anteversion and excellent stability of the stem. A 36 +2.5 ceramic delta Biolox V3 femoral head was chosen. This was impacted on to the femoral neck. Final lesser troch to the center of femoral head measurement was 55 mm. The hip was reduced and taken through range of motion. The hip was stable in all positions. There w as good soft tissue tension and appropriate leg lengths. The wound was copiously irrigated with sterile saline. Previously tagged tendons and capsule were re approximated to the posterolateral femur through 2 trochanteric drill holes. The lateral fascial lay er was closed using interrupted #1 Vicryls. The rest of the incision was closed in a layered fashion using 0 and 2-0 Vicryls. Skin was closed using 3-0 Monocryl and Dermabond. Sterile Adaptic, 4x4s, an d paper tape were used to cover the incision. The patient's anesthesia was reversed without difficul ty. She was was taken to the PACU in stable condition. Intended weightbearing will be weightbearing as tolerated with posterior hip precautions. Intended DVT prophylaxis will be Coumadin with a Loveno x bridge. [id number]/[facility] #: [id number]
[2018-07-03] MEDS ORDERED: Warfarin TAB(*) 4 MG PO ONE (17:00)
[2018-07-03] MEDS: Atorvastatin* 40 MG TAB PO SCH (17:53)
[2018-07-04] MEDS: Acetaminophen TAB* 325 MG PO SCH (03:46)
[2018-07-04] MEDS: oxyCODONE/Acetamin 5/325 MG* TAB PO PRN ×2 (04:25→08:32)
[2018-07-04 05:37] LABS: Hematocrit 30 % (35-47); Hemoglobin 9.9 g/dl (12.0-16.0); Mean Platelet Volume 7.5 um3 (7.4-10.4); Platelet Count 195 10^3/ul (150-450)
[2018-07-04 05:43] LABS: INR 1.41 (0.77-1.02)
[2018-07-04] MEDS: Insulin LISPRO* 1 UNITS UNIT SUBCUT SCH ×2 (08:00→08:01)
[2018-07-04] MEDS: Hydrochlorothiazide TAB* 25 MG PO SCH (08:31)
[2018-07-04] MEDS: Magnesium Hydroxide LIQ* 30 ML UDC PO SCH (08:31)
[2018-07-04] MEDS: Lisinopril TAB* 10 MG PO SCH (08:31)
[2018-07-04] MEDS: Metoprolol Tartrate TAB* 25 MG PO SCH (08:31)
[2018-07-04] MEDS: Docusate CAP* 100 MG PO SCH (08:32)
[2018-07-04] MEDS: Insulin GLARGINE(*) 1 UNITS UNIT SUBCUT SCH (08:33)
[2018-07-04 08:34] VITALS: BP 150/48
--- NOTE | 2018-07-04 11:16 | PN ---
Progress Note - Progress Note Date of Service: 07/04/18 SOAP: Subjective: 82 y/o s/p R ZACK by Dr. Ervin 07/02/2018. Patient feeling well, no complaints. Objective: General: Well appearing, NAD RLE: Right hip dressing CDI without erythema. Thigh is soft. DF/PF intact and capillary refill less than two seconds distally. DF/PF intact and Sensation intact distally. Calves are supple and nontender without erythema, edema or palpable cords Assessment: POD 2 sp right total hip arthroplasty by Dr Ervin 07/02 hyperglycemia Plan: []WBAT PT/OT Incentive spirometry encouraged Lovenox, coumadin 8 mg today
== END 2018-07-04 09:38 | DRG 470 ==
LOC: AA 05:54 → SSU 12:12
PROVIDERS: ADMIT Orthopaedic Surgery Adult Reconstructive Orthopaedic Surgery; ATTEND Orthopaedic Surgery Adult Reconstructive Orthopaedic Surgery
PROC: 0SR904A Replacement of Right Hip Joint with Ceramic on Polyethylene Synthetic Substitute, Uncemented, Open Approach (ICD-10-PCS; principal; 2018-07-02 07:30)
DX: M16.11 Unilateral primary osteoarthritis, right hip (principal); E11.22 Type 2 diabetes mellitus with diabetic chronic kidney disease; I12.9 Hypertensive chronic kidney disease with stage 1 through stage 4 chronic kidney disease, or unspecified chronic kidney disease; E78.00 Pure hypercholesterolemia, unspecified; E55.9 Vitamin D deficiency, unspecified; N18.2 Chronic kidney disease, stage 2 (mild); Z96.642 Presence of left artificial hip joint; E11.21 Type 2 diabetes mellitus with diabetic nephropathy; E11.36 Type 2 diabetes mellitus with diabetic cataract; E66.9 Obesity, unspecified; M48.00 Spinal stenosis, site unspecified; E11.65 Type 2 diabetes mellitus with hyperglycemia; K21.9 Gastro-esophageal reflux disease without esophagitis; M25.751 Osteophyte, right hip; Z23 Encounter for immunization; Z85.3 Personal history of malignant neoplasm of breast; Z90.710 Acquired absence of both cervix and uterus; Z86.73 Personal history of transient ischemic attack (TIA), and cerebral infarction without residual deficits; Z88.8 Allergy status to other drugs, medicaments and biological substances; Z88.5 Allergy status to narcotic agent; Z91.048 Other nonmedicinal substance allergy status; Z82.49 Family history of ischemic heart disease and other diseases of the circulatory system; Z84.1 Family history of disorders of kidney and ureter; Z68.34 Body mass index [BMI] 34.0-34.9, adult; Z87.11 Personal history of peptic ulcer disease; Z90.722 Acquired absence of ovaries, bilateral; Z86.010 Personal history of colon polyps; Z85.828 Personal history of other malignant neoplasm of skin
CPT/HCPCS: 36415; 62323; 80048; 82947; 85014; 85018; 85049; 85610; 90732; A9270-GY; C1713; C1776; G8978-GP-CJ; G8978-GP-CK; G8978-GP-CL; G8979-GP-CI; G8987-GO-CJ; G8988-GO-CI; J0690; J1100; J1650; J1885; J2250; J2405; J2704; J2765; J2795; J3010

== ENCOUNTER 2018-07-04 09:04 | Inpatient (IN) | payer MEDICARE, OTHER ==
[2018-07-04] MEDS: Insulin LISPRO* 1 UNITS UNIT SUBCUT SCH ×2 (12:20→17:15)
[2018-07-04] MEDS ORDERED: Senna TAB PO PRN (12:40)
[2018-07-04] MEDS ORDERED: Magnesium Hydroxide LIQ* 30 ML UDC PO PRN (12:40)
[2018-07-04] MEDS ORDERED: Dextrose 50% Syringe 50 ML* 25 GM/50 ML SYRINGE IV PUSH PRN (12:45)
[2018-07-04] MEDS ORDERED: Enoxaparin(*) 30 MG/0.3 ML SYR SUBCUT SCH (13:00)
[2018-07-04] MEDS ORDERED: Enoxaparin(*) 30 MG/0.3 ML SYR ONE (13:18)
[2018-07-04] MEDS ORDERED: oxyCODONE/Acetamin 5/325 MG* TAB ONE (13:19)
[2018-07-04] MEDS ORDERED: Insulin LISPRO* 1 UNITS UNIT SUBCUT ONE (13:20)
[2018-07-04] MEDS: oxyCODONE/Acetamin 5/325 MG* TAB PO PRN ×3 (13:23→22:18)
[2018-07-04] MEDS: Warfarin TAB(*) 5 MG PO SCH (17:16)
[2018-07-04] MEDS: Atorvastatin* 40 MG TAB PO SCH (17:17)
[2018-07-04] MEDS: metFORMIN* 500 MG TAB PO SCH (17:17)
[2018-07-04] MEDS: Docusate CAP* 100 MG PO SCH (20:59)
[2018-07-04] MEDS: Metoprolol Tartrate TAB* 25 MG PO SCH (20:59)
[2018-07-04] MEDS: Insulin GLARGINE(*) 1 UNITS UNIT SUBCUT SCH (21:00)
--- NOTE | 2018-07-04 22:38 | HP ---
ADMISSION HISTORY AND PHYSICAL: DATE OF ADMISSION: 07/04/18 REASON FOR ADMISSION: Right total hip replacement. HISTORY OF PRESENT ILLNESS: Lisa Lackey is an 82-year-old female. She has a medical history significant for insulin-dependent diabetes mellitus and renal artery hypertension. She had a left total hip replacement done [address] Bauer in [place]. She has had ongoing pain with the right hip. She saw Dr. Aida Ervin. She had tried and failed conservative treatments. She had x- ray showing end-stage osteoarthritis. It was decided the best course of action would be for her to have a right total hip replacement. She was admitted to [facility] on 07/02/18 and underwent a right total hip replacement that day. After the surgery, her fingersticks were in the 300s. She was seen by Dr. Sebastian, who increased her insulin doses. She was felt to have physical therapy and occupational therapy needs. She is now being admitted for inpatient rehab, so she might return to independent living. PAST MEDICAL HISTORY: Significant for the aforementioned diabetes mellitus as well as renal artery hypertension. She has a history of carpal tunnel syndrome , cataracts, and she had a history of breast cancer as well. She has a history of chronic kidney disease stage 2, and spinal stenosis. MEDICATIONS: Current medications include: 1. Lipitor. 2. She is also on Lovenox. 3. Hydrochlorothiazide. 4. Lantus. 5. Humalog insulin. 6. Lisinopril. 7. Glucophage. 8. Lopressor. 9. Percocet for pain control. 10. Coumadin. ALLERGIES: The patient has allergies to CLONIDINE as well as she is allergic to LIQUOR. SOCIAL HISTORY: She is a nonsmoker, nondrinker. She lives in a 2-story house with her , but stays largely on the first floor. She has 3 children, who live in the area. REVIEW OF SYSTEMS: The patient reports no current shortness of breath or chest pain. PHYSICAL EXAMINATION VITAL SIGNS: The patient's temperature is 98.2, blood pressure is 136/44, pulse 65, respirations 18. HEENT: Her extraocular movements are intact. Tongue is midline. NECK: Supple. LUNGS: Sound clear to auscultation bilaterally. HEART: Sounds are regular. S1 and S2 are audible. ABDOMEN: Soft and nontender. EXTREMITIES: Her right hip has a wound, which is clean and dry. She has trace edema at the right foot. NEUROLOGIC: Sensation may have been slightly diminished in her feet. Muscle strength is about 5/5 except the right lower extremity, which was 3/5 secondary to pain. Her functional exam, she transfers with contact guard. ASSESSMENT: Right total hip replacement. PLAN: Integrate her into a comprehensive and therapeutic rehab program with the following goals: 1. Physical Therapy will work with the patient. They are going to work on functional transfer training and ambulation training with a walker. 2. Occupational Therapy will see the patient, work on her activities of daily living including toileting and toilet transfers. 3. Coumadin for DVT prophylaxis. 4. Adequate analgesia. 5. For her diabetes mellitus, we are going to restart her Glucophage and continue her Lantus and lispro insulin. 6. For her hypertension, we will continue her current medications including hydrochlorothiazide, lisinopril, Lopressor. 7. card services specialist will be closely involved to make sure that any services and equipment the patient requires are in place prior to discharge. 8. Family training as appropriate. 9. Home with appropriate services. ESTIMATED LENGTH OF STAY: 7 to 10 days. [id number]/[facility] #: [id number] REHANA
[2018-07-05 08:35] LABS: ABS Basophils 0 10^3/ul (0-0.2); ABS Eosinophils 0.2 10^3/ul (0-0.6); ABS Lymphocytes 1.1 10^3/ul (1.0-4.8); ABS Monocytes 0.7 10^3/ul (0-0.8); ABS Neutrophils 6.4 10^3/ul (1.5-7.7); ABS Nucleated RBC 0 10^3/ul; Eosinophil % 2.8 % (0-6); Hematocrit 33 % (35-47); Hemoglobin 10.9 g/dl (12.0-16.0); Lymphocyte % 13.5 % (25-47); Mean Corpuscular HGB Conc 33 g/dl (31-36); Mean Corpuscular Hemoglobin 29 pg (27-31); Mean Corpuscular Volume 87 fL (80-97); Mean Platelet Volume 7.5 um3 (7.4-10.4); Nucleated Red Blood Cells % 0.1; Platelet Count 224 10^3/ul (150-450); Red Blood Count 3.76 10^6/ul (4.00-5.40); Red Cell Distribution Width 15 % (10.5-15); White Blood Count 8.5 10^3/ul (3.5-10.8)
[2018-07-05 08:41] LABS: INR 2.05 (0.77-1.02)
[2018-07-05 08:57] LABS: EGFR Non-African American 41.5 (>60)
[2018-07-05] MEDS: Insulin LISPRO* 1 UNITS UNIT SUBCUT SCH ×3 (08:57→17:11)
[2018-07-05] MEDS: Metoprolol Tartrate TAB* 25 MG PO SCH ×2 (08:58→21:06)
[2018-07-05] MEDS: Insulin GLARGINE(*) 1 UNITS UNIT SUBCUT SCH ×2 (08:58→21:08)
[2018-07-05] MEDS: metFORMIN* 500 MG TAB PO SCH ×2 (08:58→17:10)
[2018-07-05] MEDS: Lisinopril TAB* 10 MG PO SCH (08:58)
[2018-07-05] MEDS: Hydrochlorothiazide TAB* 25 MG PO SCH (08:58)
[2018-07-05] MEDS: oxyCODONE/Acetamin 5/325 MG* TAB PO PRN ×3 (08:59→21:07)
[2018-07-05] MEDS: Docusate CAP* 100 MG PO SCH ×2 (09:01→21:07)
--- NOTE | 2018-07-05 12:48 | PMRUTEAM ---
PMRU: Team Meeting Current Status: Nursing: Current Status Skin Deviations [Right Hip] Incision Skin Deviation Description [ RTHip Right Hip] Physical Therapy: Current Status Bed Mobility Assistance Supervision Transfer Moblility Assistance Supervision Transfer/Bed Mobility Rolling Walker Recommended Devices Transfer Mobility Comment confident and safe Ambulation Assistance Supervision Ambulation Assistive Devices Rolling Walker Number of Feet Patient 110' Ambulated Ambulation Comment Reciprocal slightly antalgic gait Stairs Assistance Supervision Stairs Recommended Devices Two Rails Number of Stairs 5 Curb Not Tested Occupational Therapy: Current Status Upper Body Dressing Independent Lower Body Dressing Ind with Adaptive Equip Bathing Ind with Adaptive Equip Toileting Supervision Toilet Transfer Supervision Shower Transfer Ind with Adaptive Equip Eating Independent Rec Therapy: Current Status Summary of Assessment and Patient was open to meeting with medical writer to discuss Clinical Impression her leisure lifestyle prior to admission. Patient was euthymic and forthcoming with information. Patient was able to identify multiple leisure interests and kept stating she feels very blessed and described herself as a "[id number]" person . Patient is open to continued leisure visits. Treatment Goals Patient will engage in recreation and leisure activities while on the unit. Treatment Plan Provide and encourage involvement in RT services. Continue to follow up to offer 1:1 leisure sessions for socialization. Social Work: Current Status Discharge Plan stay with her daughter and receive home care svs from [facility] Family Training pt's family are involved and supportive Anticipated Discharge Home Destination Discharge With home care svs and family support Goals: Physical Therapy: Initial Goals Bed Mobility Assistance Independent Transfer Mobility Assistance Independent Transfer/Bed Mobility Rolling Walker Recommended Devices Ambulation Independent Ambulation Recommended Devices None Ambulation Distance 150 Stairs Assistance Independent Stair Recommended Devices Two Rails Number of Stairs 5 Home Exercise Program Independent Assistance Physical Therapy: Updated Goals Transfer Mobility Assistance Independent Transfer/Bed Mobility Rolling Walker Recommended Devices Ambulation Assistance Independent Ambulation Assistive Devices Rolling Walker Ambulation Distance (ft) 150 Stairs Assistance Independent Stairs Recommended Devices Two Rails Number of Stairs 5 Occupational Therapy: Initial Goals Goals to be Completed in (Days 1 ) Upper Body Bathing Routine Independent Lower Body Bathing Routine Modified Independent with Upper Body Dressing Routine Independent Lower Body Dressing Routine Modified Independent with Toilet Hygeine and Clothing Modified Independent with Management Routine Toilet Transfer Routine Modified Independent with Step-In Shower Transfer Supervision/Set Up Routine Functional Transfers for ADL Modified Independent with Grooming Routine Independent Feeding Routine Independent Social Work: Goals Discharge Plan stay with her daughter and receive home care svs from [facility] Training pt's family are involved and supportive Anticipated Discharge Home Destination Discharge With home care svs and family support Care Plan: Care Plan DVT Prophylaxis- Improve/Maintain Start: 07/04/18 10:33 Freq: QSHIFT Status: Active Target: Protocol: Activity Type Activity Date Activity User E-Sign Co-Sign Detail Recorded Client Recorded Date Recorded By Document 07/05/18 00:14 [id number] [email or web address] 07/05/18 00:14 [id number] 07/05/18 00:14 PMRU Outcome: DVT Prophylaxis Outcome/Goals Remains Free of DVT Complies with DVT Prophylaxis /Treatment Demonstrates Knowledge of DVT Prevention/ Treatment TEDS Stockings on Every AM, Off at HS Progression Toward Outcome/Goals Progressing Discharge Planning - Improve/Maintain Start: 07/04/18 10:33 Freq: DAILY Status: Active Target: Protocol: Activity Type Activity Date Activity User E-Sign Co-Sign Detail Recorded Client Recorded Date Recorded By Document 07/05/18 00:14 [id number] [email or web address] 07/05/18 00:14 [id number] 07/05/18 00:14 PMRU Outcome: Discharge Planning Update Patient Family Yes Outcome/Goals Demonstrates Understanding of Discharge Plan Progression Toward Outcome/Goals Progressing Education-Improve/Maintain Start: 07/04/18 10:33 Freq: QSHIFT Status: Active Target: Protocol: Activity Type Activity Date Activity User E-Sign Co-Sign Detail Recorded Client Recorded Date Recorded By Document 07/05/18 00:14 [id number] [email or web address] 07/05/18 00:14 [id number] 07/05/18 00:14 PMRU Outcome: Education Outcome/Goals Encourage Questions Progression Toward Outcome/Goals Progressing /GI-Improve/Maintain Start: 07/04/18 10:33 Freq: QSHIFT Status: Active Target: Protocol: Activity Type Activity Date Activity User E-Sign Co-Sign Detail Recorded Client Recorded Date Recorded By Document 07/05/18 00:14 [id number] [email or web address] 07/05/18 00:14 [id number] 07/05/18 00:14 PMRU Outcome: Genitourinary/ Gastrointestinal Genitourinary- Outcome/Goals Maintain/ Achieve Urinary Continence Remain Free of Hospital- Acquired UTI Gastrointestinal-Outcome/Goals Maintain/ Achieve Bowel Regularity in Accordance with Pt's Baseline Prevent Constipation Laxatives as Ordered Progression Toward Outcome/Goals - Progressing Progression Toward Outcome/Goals - GI Progressing Medication Administration Start: 07/04/18 10:33 Freq: QSHIFT Status: Active Target: Protocol: Activity Type Activity Date Activity User E-Sign Co-Sign Detail Recorded Client Recorded Date Recorded By Document 07/05/18 00:14 [id number] [email or web address] 07/05/18 00:14 [id number] 07/05/18 00:14 PMRU Outcome: Medication Administration Assess Patient Knowledge/Teach Med Yes Education for all Meds Outcome/Goals Patient Independent with Medication Administration at Home Demonstrates Understanding Progression Towards Outcome/Goals Progressing Is Patient Going Home on Lovenox? No Metabolic Status- Improve/Maintain Start: 07/04/18 10:33 Freq: QSHIFT Status: Active Target: Protocol: Activity Type Activity Date Activity User E-Sign Co-Sign Detail Recorded Client Recorded Date Recorded By Document 07/05/18 00:14 [id number] [email or web address] 07/05/18 00:14 [id number] 07/05/18 00:14 PMRU Outcome: Metabolic Status Have Fingersticks Been Ordered Yes Fingerstick Order Frequency AC & HS Outcome/Goals Maintain/ Improve Metabolic Status Demonstrate Knowledge of Prevention/ Treatment of Metabolic Imbalances Progression Toward Outcome/Goals Progressing Mobility- Improve/Maintain Start: 07/04/18 12:10 Freq: DAILY Status: Active Target: Protocol: Activity Type Activity Date Activity User E-Sign Co-Sign Detail Recorded Client Recorded Date Recorded By Document 07/04/18 12:10 [id number] [email or web address] 07/04/18 12:11 [id number] 07/04/18 12:10 PMRU Outcome: Mobility Physical Therapy Evaluation and Yes Treatment Activity OOB with Assistance Yes WBAT Yes Device Yes: FWW Assistance Yes: CGA Patient to be seen 5x/wk for 60-120 min/ Therex day for: Mobility Training Gait Training Balance Outcome/Goals Maintain/ Achieve Baseline Mobility Status Improve Mobility Status Demonstrates Proper Use of Assistive Devices Free from Complications of Immobility Bed Mobility Yes: Ind Transfers Yes: Mod I Gait x ft Yes: Mod I with FWW x150ft Up/Down Stairs Yes: Supervision x6 steps 2 rails With HEP Yes Pain/Comfort- Improve/Maintain Start: 07/04/18 10:33 Freq: QSHIFT Status: Active Target: Protocol: Activity Type Activity Date Activity User E-Sign Co-Sign Detail Recorded Client Recorded Date Recorded By Document 07/05/18 00:14 [id number] [email or web address] 07/05/18 00:14 [id number] 07/05/18 00:14 PMRU Outcome: Pain/Comfort Outcome/Goals Demonstrates Knowledge and Use of Available Comfort Measures Achieves Acceptable Comfort/Pain Level as Determined by Patient/Condit Maintain Comfort Level Allowing Patient to Fully Participate in Rehab Progression Toward Outcome/Goals Progressing Outcome/Goals Met Comment pt denied pain Safety- Improve/Maintain Start: 07/04/18 10:33 Freq: QSHIFT Status: Active Target: Protocol: Activity Type Activity Date Activity User E-Sign Co-Sign Detail Recorded Client Recorded Date Recorded By Document 07/05/18 00:14 [id number] [email or web address] 07/05/18 00:14 [id number] 07/05/18 00:14 PMRU Outcome: Safety Outcome/Goals Remain Free of Injury or Harm Prevent Falls/ Injury Progression Toward Outcome/Goals Progressing Skin- Improve/Maintain Start: 07/04/18 10:33 Freq: QSHIFT Status: Active Target: Protocol: Activity Type Activity Date Activity User E-Sign Co-Sign Detail Recorded Client Recorded Date Recorded By Document 07/05/18 00:14 [id number] [email or web address] 07/05/18 00:14 [id number] 07/05/18 00:14 PMRU Outcome: Skin Skin Risk Level Medium Skin Orders Dressing Change Outcome/Goals Maintain/ Improve Skin Intergrity Free from Decubitus Surgical Incisions Healing Progression Toward Outcome/Goals Progressing Medicine Note: Length of Stay: 3 days Anticipated Discharge Destination: Home Tentative Discharge Date: 07/08/18 Discharged to: home
--- NOTE | 2018-07-05 15:42 | PN ---
Progress Note Date of Service: 07/05/18 Note: RENETTA MATA was visited. Therapy notes read and reviewed. She was discussed in interdisciplinary team rounds. She has been doing well with both therapies. INR is now therapeutic. BS better Current Medications: Active Medications Generic Name Dose Route Start Last Admin Trade Name Freq PRN Reason Stop Dose Admin Acetaminophen 650 mg 07/04/18 12:40 Tylenol Tab* PO Q6H PRN FEVER/PAIN Atorvastatin Calcium 40 mg 07/04/18 17:00 07/04/18 17:17 Lipitor* PO 40 mg 1700 KENDRICK Administration Dextrose 12.5 gm 07/04/18 12:45 D50w Syringe 50 Ml* IV PUSH .FOR FS < 60 - SS PRN FS < 60 Docusate Sodium 100 mg 07/04/18 21:00 07/05/18 09:01 Colace Cap* PO Not Given BID KENDRICK Hydrochlorothiazide 25 mg 07/05/18 09:00 07/05/18 08:58 Hydrodiuril Tab* PO 25 mg DAILY KENDRICK Administration Insulin Glargine 28 units 07/04/18 21:00 07/05/18 08:58 Lantus(*) SUBCUT 28 units Q12H KENDRICK Administration Insulin Human Lispro 14 units 07/04/18 16:30 07/05/18 13:11 Humalog* SUBCUT 14 units AC KENDRICK Administration Lisinopril 40 mg 07/05/18 09:00 07/05/18 08:58 Prinivil Tab* PO 40 mg DAILY KENDRICK Administration Magnesium Hydroxide 30 ml 07/04/18 12:40 Milk Of Magnesia Liq* PO Q6H PRN CONSTIPATION Metformin HCl 500 mg 07/04/18 17:00 07/05/18 08:58 Glucophage* PO 500 mg 0800,1700 KENDRICK Administration Metoprolol Tartrate 25 mg 07/04/18 21:00 07/05/18 08:58 Lopressor Tab* PO 25 mg BID KENDRICK Administration Oxycodone/Acetaminophen 1 tab 07/04/18 12:53 Percocet 5/325 Tab* PO Q4H PRN PAIN - MODERATE TO SEVERE Oxycodone/Acetaminophen 2 tab 07/04/18 12:53 07/05/18 08:59 Percocet 5/325 Tab* PO 2 tab Q4H PRN Administration PAIN - SEVERE Senna 2 tab 07/04/18 12:40 Senokot Tab* PO BEDTIME PRN CONSTIPATION Warfarin Sodium 5 mg 07/04/18 17:00 07/04/18 17:16 Coumadin Tab(*) PO 5 mg DAILY@1700 KENDRICK Administration Protocol Vital Signs: Vital Signs Temp Pulse Resp BP Pulse Ox 98.9 F 65 18 137/46 98 07/05/18 15:00 07/05/18 15:00 07/05/18 15:00 07/05/18 15:00 07/05/18 15:00 Lab Results: Laboratory Results - last 24 hr 07/04/18 07/04/18 07/05/18 16:46 23:25 07:56 WBC RBC Hgb Hct MCV MCH MCHC RDW Plt Count MPV Neut % (Auto) Lymph % (Auto) [place] % (Auto) Eos % (Auto) Baso % (Auto) Absolute Neuts (auto) Absolute Lymphs (auto) Absolute Monos (auto) Absolute Eos (auto) Absolute Basos (auto) Absolute Nucleated RBC Nucleated RBC % INR (Anticoag Therapy) Sodium Potassium Chloride Carbon Dioxide Anion Gap BUN Creatinine Est GFR ( Amer) Est GFR (Non-Af Amer) BUN/Creatinine Ratio Glucose POC Glucose (mg/dL) 205 H 149 H 178 H Calcium Total Bilirubin AST ALT Alkaline Phosphatase Total Protein Albumin Globulin Albumin/Globulin Ratio 07/05/18 07/05/18 07/05/18 08:21 08:21 08:21 WBC 8.5 RBC 3.76 L Hgb 10.9 L Hct 33 L MCV 87 MCH 29 MCHC 33 RDW 15 Plt Count 224 MPV 7.5 Neut % (Auto) 75.7 Lymph % (Auto) 13.5 L [place] % (Auto) 7.7 H Eos % (Auto) 2.8 Baso % (Auto) 0.3 Absolute Neuts (auto) 6.4 Absolute Lymphs (auto) 1.1 Absolute Monos (auto) 0.7 Absolute Eos (auto) 0.2 Absolute Basos (auto) 0 Absolute Nucleated RBC 0 Nucleated RBC % 0.1 INR (Anticoag Therapy) 2.05 H Sodium 135 Potassium 5.1 H Chloride 103 Carbon Dioxide 27 Anion Gap 5 BUN 35 H Creatinine 1.24 H Est GFR ( Amer) 50.2 Est GFR (Non-Af Amer) 41.5 BUN/Creatinine Ratio 28.2 H Glucose 213 H POC Glucose (mg/dL) Calcium 9.5 Total Bilirubin 0.40 AST 29 ALT 15 Alkaline Phosphatase 49 Total Protein 5.9 L Albumin 3.3 Globulin 2.6 Albumin/Globulin Ratio 1.3 07/05/18 11:49 WBC RBC Hgb Hct MCV MCH MCHC RDW Plt Count MPV Neut % (Auto) Lymph % (Auto) [place] % (Auto) Eos % (Auto) Baso % (Auto) Absolute Neuts (auto) Absolute Lymphs (auto) Absolute Monos (auto) Absolute Eos (auto) Absolute Basos (auto) Absolute Nucleated RBC Nucleated RBC % INR (Anticoag Therapy) Sodium Potassium Chloride Carbon Dioxide Anion Gap BUN Creatinine Est GFR ( Amer) Est GFR (Non-Af Amer) BUN/Creatinine Ratio Glucose POC Glucose (mg/dL) 169 H Calcium Total Bilirubin AST ALT Alkaline Phosphatase Total Protein Albumin Globulin Albumin/Globulin Ratio Exam: LUNGS: Clear bilaterally HEART: reg rhythm ABDOMEN: Soft, +BS EXTREMITIES: Wound over right hip c/d/i NEUROLOGIC: alert and oriented. Sensation slightll less in feet. Motor strength 5/5 except RLE Assessment/Plan: 1. Right total hip arthroplasty: WBAT. PT/OT 2. DM: Lantus/Lispro/Metformin. Watch Cr on metformin 3. DVT Prophylaxis: Coumadin. INR 2. D/C Lovenox 4. Advanced Directives: Full code 5. HTN: Lisinopril/HCTZ/Lopressor 07/05/18 15:43 07/05/18 15:46
[2018-07-05] MEDS: Atorvastatin* 40 MG TAB PO SCH (17:10)
[2018-07-05] MEDS: Warfarin TAB(*) 5 MG PO SCH (17:10)
[2018-07-05] MEDS ORDERED: Insulin LISPRO* 1 UNITS UNIT SUBCUT ONE (21:00)
[2018-07-06] MEDS: oxyCODONE/Acetamin 5/325 MG* TAB PO PRN ×4 (04:38→20:57)
[2018-07-06 06:36] LABS: INR 1.92 (0.77-1.02)
[2018-07-06] MEDS: Insulin LISPRO* 1 UNITS UNIT SUBCUT SCH ×3 (07:55→16:44)
[2018-07-06] MEDS: metFORMIN* 500 MG TAB PO SCH ×2 (07:56→16:44)
[2018-07-06] MEDS: Docusate CAP* 100 MG PO SCH ×2 (07:57→20:57)
[2018-07-06] MEDS: Metoprolol Tartrate TAB* 25 MG PO SCH ×2 (07:57→20:58)
[2018-07-06] MEDS: Insulin GLARGINE(*) 1 UNITS UNIT SUBCUT SCH ×2 (07:57→20:58)
[2018-07-06] MEDS: Lisinopril TAB* 10 MG PO SCH (07:57)
[2018-07-06] MEDS: Hydrochlorothiazide TAB* 25 MG PO SCH (07:57)
--- NOTE | 2018-07-06 08:19 | PN ---
Progress Note Date of Service: 07/06/18 Note: RENETTA MATA was visited. Therapy notes read and reviewed. She didn't receive her 1700 dose of Lispro last night and her 2100 finger stick was high as a result. Otherwise doing ok, no complaints of SOB. Current Medications: Active Medications Generic Name Dose Route Start Last Admin Trade Name Freq PRN Reason Stop Dose Admin Acetaminophen 650 mg 07/04/18 12:40 Tylenol Tab* PO Q6H PRN FEVER/PAIN Atorvastatin Calcium 40 mg 07/04/18 17:00 07/05/18 17:10 Lipitor* PO 40 mg 1700 KENDRICK Administration Dextrose 12.5 gm 07/04/18 12:45 D50w Syringe 50 Ml* IV PUSH .FOR FS < 60 - SS PRN FS < 60 Docusate Sodium 100 mg 07/04/18 21:00 07/06/18 07:57 Colace Cap* PO 100 mg BID KENDRICK Administration Hydrochlorothiazide 25 mg 07/05/18 09:00 07/06/18 07:57 Hydrodiuril Tab* PO 25 mg DAILY KENDRICK Administration Insulin Glargine 28 units 07/04/18 21:00 07/06/18 07:57 Lantus(*) SUBCUT 28 units Q12H KENDRICK Administration Insulin Human Lispro 14 units 07/04/18 16:30 07/06/18 07:55 Humalog* SUBCUT 14 units AC KENDRICK Administration Lisinopril 40 mg 07/05/18 09:00 07/06/18 07:57 Prinivil Tab* PO 40 mg DAILY KENDRICK Administration Magnesium Hydroxide 30 ml 07/04/18 12:40 Milk Of Magnesia Liq* PO Q6H PRN CONSTIPATION Metformin HCl 500 mg 07/04/18 17:00 07/06/18 07:56 Glucophage* PO 500 mg 0800,1700 KENDRICK Administration Metoprolol Tartrate 25 mg 07/04/18 21:00 07/06/18 07:57 Lopressor Tab* PO 25 mg BID KENDRICK Administration Oxycodone/Acetaminophen 1 tab 07/04/18 12:53 07/06/18 04:38 Percocet 5/325 Tab* PO 1 tab Q4H PRN Administration PAIN - MODERATE TO SEVERE Oxycodone/Acetaminophen 2 tab 07/04/18 12:53 07/05/18 08:59 Percocet 5/325 Tab* PO 2 tab Q4H PRN Administration PAIN - SEVERE Senna 2 tab 07/04/18 12:40 Senokot Tab* PO BEDTIME PRN CONSTIPATION Warfarin Sodium 6 mg 07/06/18 17:00 Coumadin Tab(*) PO DAILY@1700 [facility] Protocol Vital Signs: Vital Signs Temp Pulse Resp BP Pulse Ox 97.8 F 67 14 129/42 97 07/06/18 06:41 07/06/18 06:41 07/06/18 06:41 07/06/18 06:41 07/06/18 06:41 Lab Results: Laboratory Results - last 24 hr 07/05/18 07/05/18 07/05/18 08:21 08:21 08:21 WBC 8.5 RBC 3.76 L Hgb 10.9 L Hct 33 L MCV 87 MCH 29 MCHC 33 RDW 15 Plt Count 224 MPV 7.5 Neut % (Auto) 75.7 Lymph % (Auto) 13.5 L [place] % (Auto) 7.7 H Eos % (Auto) 2.8 Baso % (Auto) 0.3 Absolute Neuts (auto) 6.4 Absolute Lymphs (auto) 1.1 Absolute Monos (auto) 0.7 Absolute Eos (auto) 0.2 Absolute Basos (auto) 0 Absolute Nucleated RBC 0 Nucleated RBC % 0.1 INR (Anticoag Therapy) 2.05 H Sodium 135 Potassium 5.1 H Chloride 103 Carbon Dioxide 27 Anion Gap 5 BUN 35 H Creatinine 1.24 H Est GFR ( Amer) 50.2 Est GFR (Non-Af Amer) 41.5 BUN/Creatinine Ratio 28.2 H Glucose 213 H POC Glucose (mg/dL) Calcium 9.5 Total Bilirubin 0.40 AST 29 ALT 15 Alkaline Phosphatase 49 Total Protein 5.9 L Albumin 3.3 Globulin 2.6 Albumin/Globulin Ratio 1.3 07/05/18 07/05/18 07/05/18 11:49 16:28 20:03 WBC RBC Hgb Hct MCV MCH MCHC RDW Plt Count MPV Neut % (Auto) Lymph % (Auto) [place] % (Auto) Eos % (Auto) Baso % (Auto) Absolute Neuts (auto) Absolute Lymphs (auto) Absolute Monos (auto) Absolute Eos (auto) Absolute Basos (auto) Absolute Nucleated RBC Nucleated RBC % INR (Anticoag Therapy) Sodium Potassium Chloride Carbon Dioxide Anion Gap BUN Creatinine Est GFR ( Amer) Est GFR (Non-Af Amer) BUN/Creatinine Ratio Glucose POC Glucose (mg/dL) 169 H 124 H 213 H Calcium Total Bilirubin AST ALT Alkaline Phosphatase Total Protein Albumin Globulin Albumin/Globulin Ratio 07/06/18 07/06/18 06:14 07:33 WBC RBC Hgb Hct MCV MCH MCHC RDW Plt Count MPV Neut % (Auto) Lymph % (Auto) [place] % (Auto) Eos % (Auto) Baso % (Auto) Absolute Neuts (auto) Absolute Lymphs (auto) Absolute Monos (auto) Absolute Eos (auto) Absolute Basos (auto) Absolute Nucleated RBC Nucleated RBC % INR (Anticoag Therapy) 1.92 H Sodium Potassium Chloride Carbon Dioxide Anion Gap BUN Creatinine Est GFR ( Amer) Est GFR (Non-Af Amer) BUN/Creatinine Ratio Glucose POC Glucose (mg/dL) 186 H Calcium Total Bilirubin AST ALT Alkaline Phosphatase Total Protein Albumin Globulin Albumin/Globulin Ratio Exam: LUNGS: Clear bilaterally HEART: reg rhythm ABDOMEN: Soft, +BS EXTREMITIES: Wound over right hip c/d/i NEUROLOGIC: alert and oriented. Sensation slightly diminished in feet. Motor strength 5/5 except RLE Assessment/Plan: 1. Right total hip arthroplasty: WBAT. PT/OT 2. DM: Lantus/Lispro/Metformin. Watch Cr on metformin 3. DVT Prophylaxis: Coumadin. INR fell below 2. Will increase Coumadin 4. Advanced Directives: Full code 5. HTN: Lisinopril/HCTZ/Lopressor 07/06/18 08:19
[2018-07-06] MEDS: Acetaminophen TAB* 325 MG PO PRN (11:00)
[2018-07-06] MEDS: Atorvastatin* 40 MG TAB PO SCH (16:44)
[2018-07-06] MEDS: Warfarin TAB(*) 6 MG PO SCH (16:52)
[2018-07-06] MEDS ORDERED: Warfarin TAB(*) 5 MG PO SCH (17:00)
[2018-07-07] MEDS: metFORMIN* 500 MG TAB PO SCH (07:55)
[2018-07-07] MEDS: Insulin LISPRO* 1 UNITS UNIT SUBCUT SCH ×3 (07:55→17:37)
[2018-07-07] MEDS: oxyCODONE/Acetamin 5/325 MG* TAB PO PRN ×3 (08:00→21:09)
[2018-07-07] MEDS: Lisinopril TAB* 10 MG PO SCH (09:59)
[2018-07-07] MEDS: Docusate CAP* 100 MG PO SCH ×2 (10:00→21:09)
[2018-07-07] MEDS: Metoprolol Tartrate TAB* 25 MG PO SCH ×2 (10:00→21:09)
[2018-07-07] MEDS: Hydrochlorothiazide TAB* 25 MG PO SCH (10:00)
[2018-07-07] MEDS: Insulin GLARGINE(*) 1 UNITS UNIT SUBCUT SCH ×2 (10:12→21:11)
[2018-07-07] MEDS ORDERED: metFORMIN* 500 MG TAB PO SCH (17:00)
--- NOTE | 2018-07-07 17:23 | PN ---
Progress Note Date of Service: 07/07/18 Note: RENETTA MATA was visited. Therapy notes read and reviewed. She has no complaints. Was able to go for a walk twice today, will likely go home tomorrow. Current Medications: Active Medications Generic Name Dose Route Start Last Admin Trade Name Freq PRN Reason Stop Dose Admin Acetaminophen 650 mg 07/04/18 12:40 07/06/18 11:00 Tylenol Tab* PO 650 mg Q6H PRN Administration FEVER/PAIN Atorvastatin Calcium 40 mg 07/04/18 17:00 07/06/18 16:44 Lipitor* PO 40 mg 1700 KENDRICK Administration Dextrose 12.5 gm 07/04/18 12:45 D50w Syringe 50 Ml* IV PUSH .FOR FS < 60 - SS PRN FS < 60 Docusate Sodium 100 mg 07/04/18 21:00 07/07/18 10:00 Colace Cap* PO 100 mg BID KENDRICK Administration Hydrochlorothiazide 25 mg 07/05/18 09:00 07/07/18 10:00 Hydrodiuril Tab* PO 25 mg DAILY KENDRICK Administration Insulin Glargine 28 units 07/04/18 21:00 07/07/18 10:12 Lantus(*) SUBCUT 28 units Q12H KENDRICK Administration Insulin Human Lispro 14 units 07/04/18 16:30 07/07/18 12:43 Humalog* SUBCUT 14 units AC KENDRICK Administration Lisinopril 40 mg 07/05/18 09:00 07/07/18 09:59 Prinivil Tab* PO 40 mg DAILY KENDRICK Administration Magnesium Hydroxide 30 ml 07/04/18 12:40 07/07/18 13:04 Milk Of Magnesia Liq* PO 30 ml Q6H PRN Administration CONSTIPATION Metformin HCl 500 mg 07/08/18 08:00 Glucophage* PO 0800,1700 KENDRICK Metoprolol Tartrate 25 mg 07/04/18 21:00 07/07/18 10:00 Lopressor Tab* PO 25 mg BID KENDRICK Administration Oxycodone/Acetaminophen 1 tab 07/04/18 12:53 07/07/18 15:19 Percocet 5/325 Tab* PO 1 tab Q4H PRN Administration PAIN - MODERATE TO SEVERE Oxycodone/Acetaminophen 2 tab 07/04/18 12:53 07/05/18 08:59 Percocet 5/325 Tab* PO 2 tab Q4H PRN Administration PAIN - SEVERE Senna 2 tab 07/04/18 12:40 Senokot Tab* PO BEDTIME PRN CONSTIPATION Warfarin Sodium 6 mg 07/06/18 17:00 07/06/18 16:52 Coumadin Tab(*) PO 6 mg DAILY@1700 KENDRICK Administration Protocol Vital Signs: Vital Signs Temp Pulse Resp BP Pulse Ox 97.6 F 78 18 172/48 100 07/07/18 15:22 07/07/18 15:22 07/07/18 15:22 07/07/18 15:22 07/07/18 15:32 Lab Results: Laboratory Results - last 24 hr 07/06/18 07/07/18 07/07/18 20:09 07:54 11:31 POC Glucose (mg/dL) 155 H 155 H 180 H 07/07/18 16:37 POC Glucose (mg/dL) 178 H Exam: LUNGS: Clear bilaterally HEART: reg rhythm ABDOMEN: Soft, +BS EXTREMITIES: Wound over right hip c/d/i NEUROLOGIC: alert and oriented. Sensation slightly diminished in feet. Motor strength 5/5 except RLE Assessment/Plan: 1. Right total hip arthroplasty: WBAT. PT/OT 2. DM: Lantus/Lispro/Metformin. Watch Cr on metformin 3. DVT Prophylaxis: Coumadin. 6 mg 4. Advanced Directives: Full code 5. HTN: Lisinopril/HCTZ/Lopressor 07/07/18 17:23
[2018-07-07] MEDS: Warfarin TAB(*) 6 MG PO SCH (17:41)
[2018-07-07] MEDS: Atorvastatin* 40 MG TAB PO SCH (17:41)
[2018-07-07] MEDS ORDERED: metFORMIN* 500 MG TAB PO ONE (19:00)
[2018-07-08] MEDS: Acetaminophen TAB* 325 MG PO PRN (02:59)
[2018-07-08 06:01] LABS: INR 2.5 (0.77-1.02)
[2018-07-08 06:06] LABS: EGFR Non-African American 41.5 (>60)
[2018-07-08 06:30] VITALS: BP 140/45
[2018-07-08] MEDS ORDERED: metFORMIN* 500 MG TAB PO SCH (08:00)
[2018-07-08] MEDS: Hydrochlorothiazide TAB* 25 MG PO SCH (08:54)
[2018-07-08] MEDS: Metoprolol Tartrate TAB* 25 MG PO SCH (08:54)
[2018-07-08] MEDS: Docusate CAP* 100 MG PO SCH (08:54)
[2018-07-08] MEDS: Lisinopril TAB* 10 MG PO SCH (08:55)
[2018-07-08] MEDS: Insulin GLARGINE(*) 1 UNITS UNIT SUBCUT SCH (09:02)
[2018-07-08] MEDS: Insulin LISPRO* 1 UNITS UNIT SUBCUT SCH ×2 (09:03→12:33)
[2018-07-08] MEDS: oxyCODONE/Acetamin 5/325 MG* TAB PO PRN (11:31)
[2018-07-08] MEDS ORDERED: Warfarin TAB(*) 5 MG PO SCH (17:00)
--- NOTE | 2018-07-08 23:03 | DS ---
C: Dr. Arie Sebastian * DISCHARGE SUMMARY: DATE OF ADMISSION: 07/04/18 DATE OF DISCHARGE: 07/08/18 DISCHARGE DIAGNOSES: 1. Right total hip replacement. 2. Diabetes mellitus. 3. Renal artery stenosis. 4. Hypertension. 5. Carpal tunnel syndrome. 6. History of breast cancer. 7. Chronic kidney disease. HISTORY OF ILLNESS AND HOSPITAL COURSE: For complete history of the events leading up to her rehab stay, please see the history and physical dictated by me on 07/04/18. While on the rehab unit, the patient's blood sugars were slightly elevated on admission. She was restarted on her metformin and this seemed to help her a good deal. The patient was noted to have an elevated potassium on the day of discharge. A repeat study was done, which showed her potassium was still elevated, was 5.3 and she was considered stable for discharge. She was maintained on Coumadin for DVT prophylaxis. The patient's INR on the date of discharge was 2.5. The patient was otherwise medically stable. Her wound looked clean and dry. She was seen by both Physical Therapy and Occupational Therapy while on the rehab unit and made good gains with both disciplines. With physical therapy at the time of admission, the patient could transfer with supervision and she was able to ambulate with contact guard about 100 feet. With occupational therapy at the time of admission, she was supervision for upper body dressing, supervision for lower body dressing, supervision for toileting and toilet transfers. By the time of discharge, she was independent in all activities, independent of her activities of daily living. She was discharged home on 07/08/18. Her discharge diet was consistent carbohydrate. DISCHARGE MEDICATIONS: 1. Coumadin 5 mg daily or as directed. 2. Hydrochlorothiazide 25 mg daily. 3. Lipitor 40 mg daily. 4. Lantus insulin 28 units subcutaneously every 12 hours. 5. Lispro insulin 14 units subcutaneously with every meals 3 times a day. 6. Lisinopril 40 mg daily. 7. Metformin 500 mg twice daily. 8. Lopressor 25 mg twice daily. 9. Percocet 1 to 2 tablets every 4 hours as needed. SERVICES AFTER DISCHARGE: The patient will have outpatient physical therapy in [place]. She will also get lab draws for her INRs through the [facility]. Follow up with Dr. Arie Sebastian in 3 to 4 weeks. She will also follow up with Dr. Aida Ervin on 07/12/18. [id number]/[facility] #: [id number] [facility]
== END 2018-07-08 13:45 | disposition home or self-care (01) | DRG 561 ==
LOC: PMRU 09:38
PROVIDERS: ADMIT Physical Medicine & Rehabilitation; ATTEND Physical Medicine & Rehabilitation
PROC: F07Z5ZZ Bed Mobility Treatment (ICD-10-PCS; principal; 2018-07-04)
PROC: F07Z9ZZ Gait Training/Functional Ambulation Treatment (ICD-10-PCS; 2018-07-04)
PROC: F07Z8ZZ Transfer Training Treatment (ICD-10-PCS; 2018-07-04)
PROC: F08Z0ZZ Bathing/Showering Techniques Treatment (ICD-10-PCS; 2018-07-04)
PROC: F08Z1ZZ Dressing Techniques Treatment (ICD-10-PCS; 2018-07-04)
PROC: F08Z3ZZ Feeding/Eating Treatment (ICD-10-PCS; 2018-07-04)
DX: Z47.1 Aftercare following joint replacement surgery (principal); Z96.641 Presence of right artificial hip joint; E11.22 Type 2 diabetes mellitus with diabetic chronic kidney disease; I12.9 Hypertensive chronic kidney disease with stage 1 through stage 4 chronic kidney disease, or unspecified chronic kidney disease; N18.2 Chronic kidney disease, stage 2 (mild); I70.1 Atherosclerosis of renal artery; G56.00 Carpal tunnel syndrome, unspecified upper limb; Z85.3 Personal history of malignant neoplasm of breast; Z96.642 Presence of left artificial hip joint; M48.00 Spinal stenosis, site unspecified; Z79.84 Long term (current) use of oral hypoglycemic drugs; Z79.4 Long term (current) use of insulin; Z79.899 Other long term (current) drug therapy; Z88.8 Allergy status to other drugs, medicaments and biological substances
CPT/HCPCS: 36415; 80048; 80053; 85025; 85610; A9270-GY; J1650

== ENCOUNTER 2024-04-28 10:20 | Observation (INO) ==
[~2024-04-28 10:20] MED LIST changes: -Buffered Lidocaine 0.9% SYRIN* 5 ML/SYR SYRINGE INTRADERM ONE; +HYDROmorphone 1 MG/1 ML SYRINGE IV PRN; +Naloxone 0.4 mg VIAL 0.4 mg/ml 1 ml VIAL IV PRN
[2024-04-28] MEDS ORDERED: fentaNYL 100 mcg/2 ml 50 MCG/ML VIAL ONE (10:49)
[2024-04-28] MEDS ORDERED: Chlorhexidine MOUTHWASH 0.12% 15 ML UDC ONE (10:49)
[2024-04-28 11:07] LABS: Rapid COVID-19 Molecular Undetected (Undetected)
[2024-04-28] MEDS ORDERED: ceFAZolin 2 GM PREMIX 2 GM/50 ML BAG ONE (11:16)
[2024-04-28] MEDS ORDERED: Lidocaine 1% w EPI 1:100,000 MDV 20 ML VIAL ONE (11:36)
[2024-04-28] MEDS ORDERED: ceFAZolin VIAL VIAL ONE (11:37)
[2024-04-28] MEDS ORDERED: Thrombin 5,000 UNITS 1 APPLIC KIT - topical use - TOPICAL ONE (11:37)
[2024-04-28] MEDS ORDERED: HYDROmorphone 0.5 MG/0.5 ML SYRINGE ONE (12:32)
[2024-04-28] MEDS ORDERED: Ondansetron 4 mg VIAL 2 MG/ML 2 ml VIAL ONE (12:55)
[2024-04-28] MEDS ORDERED: Dexamethasone IV 4 MG/ML VIAL 1 ml VIAL ONE (12:55)
[2024-04-28] MEDS ORDERED: Propofol 10 MG/ML 20 ML BTL ONE (12:55)
[2024-04-28] MEDS ORDERED: Lidocaine 2% PF 5 ML VIAL ONE (12:56)
[2024-04-28] MEDS ORDERED: Calcium Carb (TUMS) 500 mg CHEW TAB PO PRN (14:04)
[2024-04-28] MEDS ORDERED: Benzocaine/Menthol LOZ MT PRN (14:04)
[2024-04-28] MEDS ORDERED: HYDROcodone/ACETAMIN 5/325 mg TAB PO PRN (14:04)
[2024-04-28] MEDS ORDERED: Morphine 2 MG/ML SYRINGE IV PRN (14:04)
[2024-04-28] MEDS ORDERED: Ondansetron 4 mg VIAL 2 MG/ML 2 ml VIAL IV PRN (14:04)
[2024-04-28] MEDS ORDERED: Dextran 70/Hypromellose Tears Eye Drops 15 ml BTL (for Artificials Tears) BOTH EYES PRN (14:04)
[2024-04-28] MEDS ORDERED: Phenol 1.4% Throat Spray BTL MT PRN (14:04)
[2024-04-28] MEDS: Buffered Lidocaine 1% SYRIN 1 ml INTRADERM ONE (15:03)
[2024-04-28] MEDS: Lactated Ringers 1000 ml BAG 1,000 ML IV SCH ×2 (17:10→17:11)
[2024-04-28] MEDS: Aspirin EC 81 mg TAB.EC (enteric coated) PO SCH (21:46)
[2024-04-28] MEDS: Insulin GLARGINE 100 un/ml 10 ml VIAL SUBCUT SCH (21:54)
[2024-04-28] MEDS: HYDROcodone/ACETAMIN 5/325 mg TAB PO PRN (22:00)
[2024-04-28 22:22] LABS: Glucose Confirmatory 463 mg/dL (70-100)
[2024-04-29 06:26] LABS: Calcium 9.6 mg/dL (8.6-10.3); Creatinine, Serum 1.48 mg/dL (0.51-0.95); Potassium 5.3 mmol/L (3.5-5.0); eGFR CKD-EPI 34.1 (>60)
[2024-04-29] MEDS: Insulin GLARGINE 100 un/ml 10 ml VIAL SUBCUT SCH (22:00)
[2024-04-30 08:43] LABS: Calcium 9.4 mg/dL (8.6-10.3); Creatinine, Serum 1.36 mg/dL (0.51-0.95); Potassium 4.9 mmol/L (3.5-5.0); eGFR CKD-EPI 37.7 (>60)
[2024-04-30 10:08] VITALS: BP 144/60
== END 2024-04-30 11:45 | disposition home or self-care (01) ==
LOC: SSU 10:20 → OR 10:20
PROVIDERS: ADMIT Physician Assistant; ATTEND Neurological Surgery